=== PATIENT | female | born 1960 | race Caucasian/White ===

== ENCOUNTER 2020-10-10 16:27 | Observation (INO) | payer MEDICARE ==
--- NOTE | 2020-10-10 16:53 | ED ---
General Adult HPI - General Stated complaint: Chest Pain Time Seen by Provider: 10/10/20 16:38 Source: patient, EMS, RN notes reviewed, old records reviewed - History of Present Illness Initial comments: 60-year-old female presented for evaluation of chest pain throughout the day today. Pain was substernal with some associated dyspnea. Patient denies known history of coronary artery disease, does have a positive family history as well as history of diabetes. She was given aspirin nitroglycerin by EMS prior to arrival. Her pain is quite minimal at the time my evaluation. She denies associated nausea vomiting or diaphoresis. Pain did not radiate. Pain was not relieved with nitroglycerin. - Related Data Allergies Allergy/AdvReac Type Severity Reaction Status Date / Time morphine Allergy Rash/Hives Verified 10/10/20 16:59 acetaminophen [From Percocet] AdvReac Nausea & Verified 10/10/20 16:59 Vomiting oxycodone [From Percocet] AdvReac Nausea & Verified 10/10/20 16:59 Vomiting vancomycin AdvReac Nausea & Verified 10/10/20 16:59 Vomiting Review of Systems ROS Statement: Those systems with pertinent positive or pertinent negative responses have been documented in the HPI. ROS Other: All systems not noted in ROS Statement are negative. General Exam General appearance: alert, in no apparent distress Head exam: Present: atraumatic, normocephalic Eye exam: Present: normal appearance ENT exam: Present: normal exam Neck exam: Present: normal inspection. Absent: tenderness, meningismus Respiratory exam: Present: normal lung sounds bilaterally. Absent: respiratory distress, wheezes Cardiovascular Exam: Present: regular rate, normal rhythm GI/Abdominal exam: Present: soft. Absent: distended, tenderness Extremities exam: Present: normal inspection, normal capillary refill. Absent: pedal edema, calf tenderness Neurological exam: Present: alert, oriented X3, CN II-XII intact. Absent: motor sensory deficit Psychiatric exam: Present: normal affect, normal mood Skin exam: Present: warm, dry, intact. Absent: cyanosis, diaphoretic Course Vital Signs 10/10/20 16:40 Temperature 98.4 F Pulse Rate 98 Respiratory 18 Rate Blood Pressure 127/65 O2 Sat by Pulse 98 Oximetry EKG Findings - EKG Comments: EKG Findings:: EKG: Normal sinus rhythm, rate 75, NM interval 154, QRS duration 82, QTC 435, no ST segment elevation. Medical Decision Making - Medical Decision Making 60-year-old female presenting with chest pain. No known history of coronary artery disease. Patient has several risk factors. EKG sinus rhythm without ST segment elevation. Chest x-rays negative for acute Matt pulmonary disease. She has a normal CBC, normal CMP, negative d-dimer, negative initial troponin. Given her risk factor she will be kept in observation for serial cardiac enzymes, telemetry, cardiology consultation. Case is discussed with Dr. Velasco who will admit. - Lab Data Result diagrams: 10/10/20 17:05 10/10/20 17:05 Lab Results 10/10/20 10/10/20 10/10/20 Range/Units 17:05 17:05 17:05 WBC 6.5 (3.8-10.6) k/uL RBC 4.17 (3.80-5.40) m/uL Hgb 12.8 (11.4-16.0) gm/dL Hct 37.2 (34.0-46.0) % MCV 89.3 (80.0-100.0) fL MCH 30.6 (25.0-35.0) pg MCHC 34.3 (31.0-37.0) g/dL RDW 13.2 (11.5-15.5) % Plt Count 322 (150-450) k/uL MPV 7.0 Neutrophils % 44 % Lymphocytes % 41 % Monocytes % 9 % Eosinophils % 3 % Basophils % 0 % Neutrophils # 2.8 (1.3-7.7) k/uL Lymphocytes # 2.6 (1.0-4.8) k/uL Monocytes # 0.6 (0-1.0) k/uL Eosinophils # 0.2 (0-0.7) k/uL Basophils # 0.0 (0-0.2) k/uL PT 11.0 (9.0-12.0) sec INR 1.0 (<1.2) APTT 23.1 (22.0-30.0) sec D-Dimer 0.35 (<0.60) mg/L FEU Sodium 135 L (137-145) mmol/L Potassium 3.9 (3.5-5.1) mmol/L Chloride 100 (98-107) mmol/L Carbon Dioxide 26 (22-30) mmol/L Anion Gap 9 mmol/L BUN 34 H (7-17) mg/dL Creatinine 1.04 (0.52-1.04) mg/dL Est GFR (CKD-EPI)AfAm 69 (>60 ml/min/1.73 sqM) Est GFR (CKD-EPI)NonAf 60 (>60 ml/min/1.73 sqM) Glucose 105 H (74-99) mg/dL Calcium 10.0 (8.4-10.2) mg/dL Magnesium 1.8 (1.6-2.3) mg/dL Total Bilirubin 0.4 (0.2-1.3) mg/dL AST 53 H (14-36) U/L ALT 37 H (4-34) U/L Alkaline Phosphatase 49 (38-126) U/L Troponin I (0.000-0.034) ng/mL Total Protein 7.6 (6.3-8.2) g/dL Albumin 4.8 (3.5-5.0) g/dL Lipase 112 (23-300) U/L 10/10/20 Range/Units 17:05 WBC (3.8-10.6) k/uL RBC (3.80-5.40) m/uL Hgb (11.4-16.0) gm/dL Hct (34.0-46.0) % MCV (80.0-100.0) fL MCH (25.0-35.0) pg MCHC (31.0-37.0) g/dL RDW (11.5-15.5) % Plt Count (150-450) k/uL MPV Neutrophils % % Lymphocytes % % Monocytes % % Eosinophils % % Basophils % % Neutrophils # (1.3-7.7) k/uL Lymphocytes # (1.0-4.8) k/uL Monocytes # (0-1.0) k/uL Eosinophils # (0-0.7) k/uL Basophils # (0-0.2) k/uL PT (9.0-12.0) sec INR (<1.2) APTT (22.0-30.0) sec D-Dimer (<0.60) mg/L FEU Sodium (137-145) mmol/L Potassium (3.5-5.1) mmol/L Chloride (98-107) mmol/L Carbon Dioxide (22-30) mmol/L Anion Gap mmol/L BUN (7-17) mg/dL Creatinine (0.52-1.04) mg/dL Est GFR (CKD-EPI)AfAm (>60 ml/min/1.73 sqM) Est GFR (CKD-EPI)NonAf (>60 ml/min/1.73 sqM) Glucose (74-99) mg/dL Calcium (8.4-10.2) mg/dL Magnesium (1.6-2.3) mg/dL Total Bilirubin (0.2-1.3) mg/dL AST (14-36) U/L ALT (4-34) U/L Alkaline Phosphatase (38-126) U/L Troponin I <0.012 (0.000-0.034) ng/mL Total Protein (6.3-8.2) g/dL Albumin (3.5-5.0) g/dL Lipase (23-300) U/L Disposition Clinical Impression: Chest pain Disposition: ADMITTED IP TO THIS HOSP Condition: Stable Is patient prescribed a controlled substance at d/c from ED?: No Referrals: Bharath Lau DO [Primary Care Provider] - 1-2 days Decision to Admit Reason: Admit from EC Decision Date: 10/10/20 Decision Time: 18:23
[2020-10-10 17:19] LABS: Basophils % (A) 0 %; Eosinophils # (A) 0.2 k/uL (0-0.7); Eosinophils % (A) 3 %; HCT 37.2 % (34.0-46.0); HGB 12.8 gm/dL (11.4-16.0); Lymphocytes # (A) 2.6 k/uL (1.0-4.8); Lymphocytes % (A) 41 %; MCH 30.6 pg (25.0-35.0); MCHC 34.3 g/dL (31.0-37.0); MCV 89.3 fL (80.0-100.0); Monocytes # (A) 0.6 k/uL (0-1.0); Monocytes % (A) 9 %; Neutrophils # (A) 2.8 k/uL (1.3-7.7); Neutrophils % (A) 44 %; Platelet Count 322 k/uL (150-450); RBC 4.17 m/uL (3.80-5.40); RDW 13.2 % (11.5-15.5); WBC 6.5 k/uL (3.8-10.6)
[2020-10-10 17:32] LABS: Albumin 4.8 g/dL (3.5-5.0); Magnesium 1.8 mg/dL (1.6-2.3); Potassium 3.9 mmol/L (3.5-5.1); Total Bilirubin 0.4 mg/dL (0.2-1.3); Total Protein 7.6 g/dL (6.3-8.2)
[2020-10-10 17:34] LABS: D-Dimer 0.35 mg/L FEU (<0.60); Partial Thromboplastin Time 23.1 sec (22.0-30.0)
--- NOTE | 2020-10-10 18:09 | XR ---
EXAMINATION TYPE: XR chest 2V DATE OF EXAM: 10/10/2020 COMPARISON: NONE HISTORY: Chest pain, shortness of breath. TECHNIQUE: Frontal and lateral views of the chest are obtained. FINDINGS: There is no focal air space opacity, pleural effusion, or pneumothorax seen. The cardiac silhouette size is within normal limits. The osseous structures are intact. Slight haziness in the lower lung zones on anterior view is likely related to patient body habitus. Right-sided scoliosis is noted. IMPRESSION: No acute cardiopulmonary process.
[2020-10-10] MEDS ORDERED: NALOXONE 0.4 MG/ML 1 ML VIAL IV PRN (18:23)
[2020-10-10] MEDS ORDERED: GABAPENTIN 300 MG CAP PO PRN (19:30)
[2020-10-10] MEDS ORDERED: ALBUTEROL HFA INHALER INHALATION PRN (19:30)
[2020-10-10] MEDS ORDERED: ALPRAZolam 0.25 MG TAB PO PRN (19:31)
[2020-10-10] MEDS ORDERED: TEMAZEPAM 15 MG CAP PO PRN (19:31)
--- NOTE | 2020-10-10 20:35 | HP ---
HISTORY AND PHYSICAL DATE OF SERVICE: 10/10/2020. CHIEF COMPLAINT: Chest pain. HISTORY OF PRESENT ILLNESS: This 60-year-old woman with a past medical history of multiple medical problems including diabetes, hypertension, schizophrenia, scoliosis was admitted with chest pain. The pain was felt in the anterior part of chest which was arising from the epigastrium according to her and the patient had a very strong family history of coronary artery disease. Multiple members of family including the sister had heart attacks. Mother had heart problems. There is no history of fever, rigors or chills. No history of headache, loss of consciousness or seizures. Patient did not have any radiation of the pain or otherwise any associated sweating or palpitation also. The patient came to [facility]. Initial investigations were negative except minimal elevated AST, ALT. PAST MEDICAL HISTORY: History of hypertension, hyperlipidemia, history of diabetes, seizure disorder, chronic back pain, scoliosis, hysterectomy, DJD. MEDICATIONS: Medications prior to admission home medications are: Vitamin E, multivitamin, Zestril, phenytoin, Motrin, Ventolin, Neurontin, Lofibra, Zetia, Lipitor. ALLERGIES: MORPHINE, OXYCODONE, VANCOMYCIN. FAMILY HISTORY: No history of heart disease or strokes in the family. SOCIAL HISTORY: Previous history of smoking. Occasional THC. REVIEW OF SYSTEMS: ENT: No diminished vision. No diminished hearing. Cardiovascular is no angina. Otherwise as mentioned earlier. Respiratory as mentioned earlier. GI: As mentioned earlier. : No dysuria. NERVOUS SYSTEM: No numbness or weakness. ALLERGY/IMMUNOLOGY: No asthma or hayfever. MUSCULOSKELETAL as mentioned earlier. HEMATOLOGY/ONCOLOGY: As mentioned earlier. ENDOCRINE: As mentioned earlier. CONSTITUTIONAL: As mentioned earlier. DERMATOLOGY: Negative RHEUMATOLOGY: Negative. PSYCHIATRIC: As mentioned earlier. PHYSICAL EXAMINATION: Alert and oriented times three. Pulse is 86, blood pressure 120/60. Respirations 16, temperature normal, pulse ox 93% on room air. HEENT: Conjunctivae normal. NECK: No jugular venous distention. CARDIOVASCULAR: S1, S2 muffled. RESPIRATORY: Breath sounds diminished in the bases. No rhonchi. No crackles. ABDOMEN: Soft, obese, nontender. No mass palpable. No tenderness. LEGS: No edema. No swelling. NERVOUS SYSTEM: Higher functions as mentioned earlier. Moves all 4 limbs. No focal motor or sensory deficits. LYMPHATICS: No lymph nodes palpable in the neck, axillae or groin. SKIN: No ulcer, rash or bleeding. JOINTS: No active deforming arthropathy. LABS: CBC within normal limits, sodium 135. Labs noted. ASSESSMENT: 1. Chest pain possible unstable angina. 2. Rule out cholelithiasis. 3. Hyponatremia. 4. Increased AST, ALT. 5. Increased BUN. 6. Diabetes type 2. 7. Hypertension. 8. History of hyperlipidemia. 9. Seizure disorder. 10.Hypothyroidism. 11.History of multiple sclerosis. 12.History of chronic pain syndrome, back pain. 13.History of degenerative joint disease. 14.History of hysterectomy. 15.Remote history of nicotine dependence. 16.Obesity with body mass index of 44.8. 17.History of THC. 18.FULL CODE. RECOMMENDATIONS AND DISCUSSION: In this 54-year-old woman who presented with multiple complex medical issues, we will monitor the patient closely. Continue the current medications, management and symptomatic treatment. Rule out myocardial infarction. Cardiology consult. Symptomatic treatment. I would also recommend ultrasound of the abdomen to rule out the possibility of gallbladder pathology. Home medications were reviewed. 2D echo was also ordered. Prognosis guarded because of multiple complex medical issues. Further recommendations to follow. D-dimer is normal. MMODL / IJN: [id number] / [place]
[2020-10-10 20:43] LABS: Glucose,Whole Blood 168 mg/dL (75-99)
[2020-10-10] MEDS: HEPARIN SODIUM,PORCINE 5,000 UNIT/ML 1 ML VIAL SQ SCH (21:12)
[2020-10-10] MEDS: PANTOPRAZOLE 40 MG/10 ML VIAL IVP SCH (21:12)
[2020-10-11 03:49] VITALS: PULSE 83
[2020-10-11 06:44] LABS: Appearance,Urine Clear (Clear); Bacteria,Urine Occasional /hpf; Bilirubin,Urine Negative (Negative); Blood,Urine Moderate (Negative); Color,Urine Light Yellow; Glucose,Urine (UA) Negative (Negative); Hyaline Casts,Urine 3 /lpf (0-2); Ketones,Urine Negative (Negative); Leukocyte Esterase,Urine Trace (Negative); Nitrite,Urine Negative (Negative); PH, Urine 5.5 (5.0-8.0); Protein,Urine Negative (Negative); RBC,Urine 1 /hpf (0-5); Specific Gravity,Urine 1.013 (1.001-1.035); Squamous Epithelial Cell,Urine 1 /hpf (0-4); Urobilinogen,Urine <2.0 mg/dL (<2.0); WBC,Urine 5 /hpf (0-5)
[2020-10-11 07:31] VITALS: BP 110/79; RESP 14; TEMP 99
[2020-10-11 08:31] LABS: Basophils # (A) 0.01 X 10*3/uL (0.00-0.10); Basophils % (A) 0.2 %; Eosinophils # (A) 0.18 X 10*3/uL (0.04-0.35); HCT 35.3 % (37.2-46.3); HGB 11.8 g/dL (12.0-15.0); Lymphocytes # (A) 1.96 X 10*3/uL (0.90-5.00); Lymphocytes % (A) 43.4 %; MCH 30.8 pg (27.0-32.0); MCHC 33.4 g/dL (32.0-37.0); MCV 92.2 fL (80.0-97.0); Mean Platelet Volume 10.1 fL (9.5-12.2); Monocytes # (A) 0.61 X 10*3/uL (0.20-1.00); Monocytes % (A) 13.5 %; Neutrophils # (A) 1.75 X 10*3/uL (1.80-7.70); Neutrophils % (A) 38.7 %; Platelet Count 268 X 10*3/uL (140-440); RBC 3.83 X 10*6/uL (4.10-5.20); RDW 12.2 % (11.5-14.5); WBC 4.52 X 10*3/uL (4.50-10.00)
[2020-10-11] MEDS ORDERED: DOBUTamine DRIP for NUC MED 500 MG in DEXTROSE/WATER 1 250ML.BAG IV PRN (08:37)
[2020-10-11] MEDS ORDERED: FENOFIBRATE 160 MG TAB PO SCH (09:00)
[2020-10-11] MEDS ORDERED: lisinopriL 5 MG TAB PO SCH (09:00)
[2020-10-11] MEDS ORDERED: ASPIRIN 81 MG PO SCH (09:00)
[2020-10-11] MEDS ORDERED: MULTIVITAMINS, THERA 1 EACH TAB PO SCH (09:00)
[2020-10-11] MEDS ORDERED: EZETIMIBE 10 MG TAB PO SCH (09:00)
[2020-10-11] MEDS ORDERED: PHENYTOIN SODIUM EXTENDED 100 MG CAP PO SCH (09:00)
[2020-10-11] MEDS ORDERED: ATORVASTATIN 20 MG TAB PO SCH (09:00)
[2020-10-11] MEDS: PANTOPRAZOLE 40 MG/10 ML VIAL IVP SCH (09:01)
[2020-10-11] MEDS: HEPARIN SODIUM,PORCINE 5,000 UNIT/ML 1 ML VIAL SQ SCH (09:02)
--- NOTE | 2020-10-11 09:32 | US ---
EXAMINATION TYPE: US gallbladder DATE OF EXAM: 10/11/2020 COMPARISON: NONE CLINICAL HISTORY: cholelithiasis. Patient is not aware of any gb stones, heavy chest Pain. EXAM MEASUREMENTS: Liver Length: 19.2 cm Gallbladder Wall: 0.2cm CBD: 0.7cm Right Kidney: 10.9 x 4.8 x 4.9cm Pancreas: wnl Liver: focal fatty sparring seen, slightly enlarged Gallbladder: wnl Evidence for sonographic Montano's sign: no CBD: wnl Right Kidney: 2.3 x 1.7 x 1.3cm mid pole cyst seen IMPRESSION: No shadowing mobile gallstones or ultrasound evidence for acute cholecystitis. Probable m ild diffuse fatty infiltration of liver.
[2020-10-11 09:38] LABS: African American GFR (CKD) 94.2 (60.0-200.0); Albumin 4.5 g/dL (3.80-4.90); Albumin/Globulin Ratio 2.5 (1.60-3.17); Anion Gap 7.1 mmol/L (4.00-12.00); BUN/Creat Ratio 33.75 Ratio (12.00-20.00); Calcium 9.6 mg/dL (8.7-10.3); Carbon Dioxide 28.9 mmol/L (21.6-31.8); Globulin 1.8 g/dL (1.6-3.3); Non-African American GFR(CKD) 81.3 (60.0-200.0); Total Bilirubin 0.2 mg/dL (0.3-1.2); Total Protein 6.3 g/dL (6.2-8.2)
--- NOTE | 2020-10-11 12:18 | P.CRDCN ---
History of Present Illness History of present illness: HISTORY OF PRESENTING ILLNESS This is a pleasant 60-year-old female past medical history significant for type 2 diabetes, hyperlipidemia, hypertension, strong maternal family histor y of coronary artery disease. Patient's sister had an MS and 3 vessel CABG in her 50s. She does not follow a kitchen manager, but followers with Dr. Lau for her PCP. We have been asked to see in consultation for chest pain. Patient is seen and examined at bedside, resting comfortably in no acute distress . Patient stated she had chest pain over the weekend described as a sharp central chest pain that radiated to her collarbone which resolved in a couple minutes. She stated that she got sick from food poisoning. Yesterday morning, patient started to have constant chest pressure that worsened with activity. She was walking her dogs, chest pressure got worse, she exhibited some shortness of breath. Had to stop and sit down on her walker, she then had sharp central chest pain with radiation to her throat. Her pain resolved in about 2-3 minutes. She called her sister who told her to go to the emergency department. Patient does not have chest pain this morning. She denies palpitations, lower extremity edema, fatigue, weakness, lightheadedness of syncope. On her way to the emergency department stated she was given Nitro in the EMS, felt nauseous, did not relieve her chest pain, and stated her blood pressure was low 80s/40s. Denies history of MS or stroke in the past. Patients states shes complaint with medication. She does not exercise frequently. She is a former smoker. She denies alcohol or illicit drug use. Laboratory data reviewed, troponins negative 3, D- dimer 0.35, COVID-19 negative, WBC 4.5, Hgb 11.8, Plt 268. Vital signs BP 110/79 HR 83, 98% on room air, temp 99F. Current home cardiac medications include lisinopril 5 mg daily, atorvastatin 20 mg daily. DIAGNOSTICS EKG reveals sinus rhythm heart rate 75, no significant ST-T wave abnormalities. Prior EKG - no prior EKGs Telemetry tracings indicate sinus rhythm with occassional PVCs. Chest xray acute cardiopulmonary process. REVIEW OF SYSTEMS At the time of my exam: CONSTITUTIONAL: Denies fever or chills. CARDIOVASCULAR: +chest pain + shortness of breath, Denies orthopnea, PND or palpitations. RESPIRATORY: Denies cough. GASTROINTESTINAL: Denies abdominal pain, diarrhea, constipation, nausea or vom iting. MUSCULOSKELETAL: Denies myalgias. NEUROLOGIC: Denies numbness, tingling, headacbe or weakness. ENDOCRINE: Denies fatigue, weight change, polydipsia or polyurina. GENITOURINARY: Denies burning, hematuria or urgency with micturation. HEMATOLOGIC: Denies history of anemia or bleeding. PHYSICAL EXAMINATION CONSTITUTIONAL: No apparent distress. HEENT: Head is normocephalic. Pupils are equal, round. Sclerae anicteric. Mucous membranes of the mouth are moist. No JVD. No carotid bruit. CHEST EXAMINATION: Lungs are clear to auscultation. No chest wall tenderness is noted on palpation or with deep breathing. HEART EXAMINATION: Regular rate and rhythm. S1, S2 heard. No murmurs, gallops or rub. ABDOMEN: Soft, nontender. Positive bowel sounds. EXTREMITIES: 2+ peripheral pulses, no lower extremity edema and no calf tenderness. SKIN: intact NEUROLOGIC EXAMINATION: Patient is awake, alert and oriented x3. ASSESSMENT -Hypertension -Type 2 Diabetes -Hyperlipidema -Chest pain, atypical PLAN -2D Echo ordered -Will obtain Dobutamine stress echo -Per cardiology standpoint, if testing with no acute changes- ok to be discharged and follow up outpatient in cardiology clinic -Continue lisinopril 5mg daily, atorvastatin 20mg daily. Nurse Practitioner note has been reviewed, I agree with a documented findings and plan of care. Patient was seen and examined. Past Medical History Past Medical History: Diabetes Mellitus, Hyperlipidemia, Hypertension, Seizure Disorder, Thyroid Disorder Additional Past Medical History / Comment(s): ms, chronic back pain - scolosis, DDD, sees pain doctor History of Any Multi-Drug Resistant Organisms: None Reported Past Surgical History: Hysterectomy, Joint Replacement, Orthopedic Surgery Additional Past Surgical History / Comment(s): shoulder, hip replacement Past Anesthesia/Blood Transfusion Reactions: No Reported Reaction Past Psychological History: No Psychological Hx Reported Smoking Status: Former smoker Past Alcohol Use History: Rare Past Drug Use History: Marijuana Medications and Allergies Home Medications Medication Instructions Recorded Confirmed Type Albuterol Inhaler [Ventolin Hfa 2 puff INHALATION RT-Q4H PRN 10/10/20 10/10/20 History Inhaler] Atorvastatin [Lipitor] 20 mg PO DAILY 10/10/20 10/10/20 History Ezetimibe [Zetia] 10 mg PO DAILY 10/10/20 10/10/20 History Fenofibrate [Lofibra] 160 mg PO DAILY 10/10/20 10/10/20 History Gabapentin [Neurontin] 600 mg PO TID PRN 10/10/20 10/10/20 History Ibuprofen [Motrin] 800 mg PO TID PRN 10/10/20 10/10/20 History Multivitamins, Thera [Multivitamin 1 tab PO DAILY 10/10/20 10/10/20 History (formulary)] Phenytoin Sodium Extended 200 mg PO DAILY 10/10/20 10/10/20 History [Dilantin] Vitamin E 400 unit PO DAILY 10/10/20 10/10/20 History lisinopriL [Zestril] 5 mg PO DAILY 10/10/20 10/10/20 History Allergies Allergy/AdvReac Type Severity Reaction Status Date / Time morphine Allergy Rash/Hives Verified 10/10/20 18:33 oxycodone [From Percocet] AdvReac Nausea & Verified 10/10/20 18:33 Vomiting vancomycin AdvReac Nausea & Verified 10/10/20 18:33 Vomiting Physical Exam Vitals: Vital Signs Temp Pulse Pulse Resp BP BP BP 10/11/20 09:29 10/11/20 07:00 99.0 F 83 14 110/79 10/11/20 02:00 97.5 F L 83 18 139/79 10/10/20 20:00 97.9 F 88 17 131/63 10/10/20 19:15 86 16 120/63 10/10/20 19:01 87 16 120/63 10/10/20 18:30 77 16 114/56 10/10/20 18:00 78 16 131/88 10/10/20 17:30 77 16 89/74 10/10/20 17:00 90 18 126/99 10/10/20 16:40 98.4 F 98 18 127/65 Pulse Ox 10/11/20 09:29 98 10/11/20 07:00 98 10/11/20 02:00 95 10/10/20 20:00 97 10/10/20 19:15 93 L 10/10/20 19:01 98 10/10/20 18:30 98 10/10/20 18:00 98 10/10/20 17:30 98 10/10/20 17:00 99 10/10/20 16:40 98 Intake and Output 10/10/20 10/11/20 10/11/20 22:59 06:59 14:59 Intake Total 600 Output Total 600 Balance 600 -600 Intake: Oral 600 Output: Urine 600 Other: Voiding Method Toilet Toilet Toilet # Voids 2 Weight 111.13 kg Results 10/11/20 04:50 10/11/20 04:50 Cardiac Enzymes 10/10/20 10/10/20 10/10/20 Range/Units 17:05 17:05 22:38 AST 53 H (14-36) U/L Troponin I <0.012 <0.012 (0.000-0.034) ng/mL 10/11/20 10/11/20 Range/Units 04:50 04:50 AST 48 H (14-36) U/L Troponin I <0.012 (0.000-0.034) ng/mL Coagulation 10/10/20 Range/Units 17:05 PT 11.0 (9.0-12.0) sec APTT 23.1 (22.0-30.0) sec CBC 10/10/20 10/11/20 Range/Units 17:05 04:50 WBC 6.5 4.52 (3.8-10.6) k/uL RBC 4.17 3.83 L (3.80-5.40) m/uL Hgb 12.8 11.8 L (11.4-16.0) gm/dL Hct 37.2 35.3 L (34.0-46.0) % Plt Count 322 268 (150-450) k/uL Comprehensive Metabolic Panel 10/10/20 10/11/20 Range/Units 17:05 04:50 Sodium 135 L 141 (137-145) mmol/L Potassium 3.9 4.0 (3.5-5.1) mmol/L Chloride 100 105 (98-107) mmol/L Carbon Dioxide 26 28.9 (22-30) mmol/L BUN 34 H 27.0 (7-17) mg/dL Creatinine 1.04 0.8 (0.52-1.04) mg/dL Glucose 105 H 117 H (74-99) mg/dL Calcium 10.0 9.6 (8.4-10.2) mg/dL AST 53 H 48 H (14-36) U/L ALT 37 H 38 (4-34) U/L Alkaline Phosphatase 49 49 (38-126) U/L Total Protein 7.6 6.3 (6.3-8.2) g/dL Albumin 4.8 4.50 (3.5-5.0) g/dL Current Medications Generic Name Dose Route Start Last Admin Trade Name Freq PRN Reason Stop Dose Admin Albuterol Sulfate 2 puff 10/10/20 19:30 Albuterol Hfa Inhaler INHALATION RT-Q4H PRN Shortness Of Breath Alprazolam 0.25 mg 10/10/20 19:31 Alprazolam 0.25 Mg Tab PO TID PRN Anxiety Aspirin 81 mg 10/11/20 09:00 10/11/20 09:06 Aspirin 81 Mg PO 81 mg DAILY JOSESITO Administration Atorvastatin Calcium 20 mg 10/11/20 09:00 10/11/20 09:01 Atorvastatin 20 Mg Tab PO 20 mg DAILY JOSESITO Administration Ezetimibe 10 mg 10/11/20 09:00 10/11/20 09:01 Ezetimibe 10 Mg Tab PO 10 mg DAILY JOSESITO Administration Fenofibrate 160 mg 10/11/20 09:00 10/11/20 09:00 Fenofibrate 160 Mg Tab PO 160 mg DAILY JOSESITO Administration Gabapentin 600 mg 10/10/20 19:30 10/11/20 09:05 Gabapentin 300 Mg Cap PO 600 mg TID PRN Administration Pain Heparin Sodium (Porcine) 5,000 unit 10/10/20 21:00 10/11/20 09:02 Heparin Sodium,Porcine 5,000 Unit/Ml 1 Ml Vial SQ 5,000 unit Q12HR JOSESITO Administration Dobutamine HCl/Dextrose 500 mg 250 mls @ 33.339 mls/hr 10/11/20 08:37 / IV Solution IV 10/11/20 12:37 .Q7H30M PRN Per Protocol Protocol 10 MCG/KG/MIN Lisinopril 5 mg 10/11/20 09:00 10/11/20 09:01 Lisinopril 5 Mg Tab PO 5 mg DAILY JOSESITO Administration Multivitamins 1 each 10/11/20 09:00 10/11/20 09:00 Multivitamins, Thera 1 Each Tab PO 1 each DAILY JOSESITO Administration Naloxone HCl 0.2 mg 10/10/20 18:23 Naloxone 0.4 Mg/Ml 1 Ml Vial IV Q2M PRN Opioid Reversal Pantoprazole Sodium 40 mg 10/10/20 21:00 10/11/20 09:01 Pantoprazole 40 Mg/10 Ml Vial IVP 40 mg BID JOSESITO Administration Phenytoin Sodium 200 mg 10/11/20 09:00 10/11/20 09:01 Phenytoin Sodium Extended 100 Mg Cap PO 200 mg DAILY JOSESITO Administration Temazepam 15 mg 10/10/20 19:31 Temazepam 15 Mg Cap PO HS PRN Insomnia Intake and Output 10/10/20 10/11/20 10/11/20 22:59 06:59 14:59 Intake Total 600 Output Total 600 Balance 600 -600 Intake: Oral 600 Output: Urine 600 Other: Voiding Method Toilet Toilet Toilet # Voids 2 Weight 111.13 kg 10/11/20 04:50 10/11/20 04:50
--- NOTE | 2020-10-11 12:27 | ECHOF ---
Referral Reason:CP MEASUREMENTS -------- HEIGHT: 160.0 cm WEIGHT: 111.1 kg BP: 139/79 RVIDd: 3.2 cm (< 3.3) IVSd: 1.3 cm (0.6 - 1.1) LVIDd: 4.2 cm (3.9 - 5.3) LVPWd: 1.3 cm (0.6 - 1.1) IVSs: 1.9 cm LVIDs: 2.2 cm LVPWs: 1.5 cm LAESV Index (A-L): 24.25 ml/m Ao Diam: 3.4 cm (2.0 - 3.7) AV Cusp: 1.9 cm (1.5 - 2.6) MV EXCURSION: 9.024 mm (> 18.000) MV EF SLOPE: 64 mm/s (70 - 150) EPSS: 0.7 cm MV E Jez: 0.87 m/s MV DecT: 197 ms MV A Jez: 0.56 m/s MV E/A Ratio: 1.54 AV maxP.41 mmHg AV meanP.03 mmHg RAP: 5.00 mmHg RVSP: 19.39 mmHg FINDINGS -------- Sinus rhythm. This was a technically adequate study. The left ventricular size is normal. There is mild concentric left ventricular hypertrophy. Overa ll left ventricular systolic function is normal with, an EF between 55 - 60 %. The diastolic fillin g pattern is normal for the age of the patient 9.52. The right ventricle is normal in size. Normal LA size by volume 22+/-6 ml/m2. The right atrial size is normal. Interatrial and interventricular septum intact. There is mild aortic valve sclerosis. There is no evidence of aortic regurgitation. There is mild aortic stenosis present. Peak/mean gradient across the Aortic Valve is 18.41mmHg / 10.03mmHg. Mild mitral annular calcification present. Mild mitral regurgitation is present. The tricuspid valve appears structurally normal. Mild tricuspid regurgitation present. Right vent ricular systolic pressure is normal at < 35 mmHg. The right ventricular systolic pressure, as measu red by Doppler, is 19.39mmHg. There is no pulmonic regurgitation present. The aortic root size is normal. IVC Not well visulized. There is no pericardial effusion. CONCLUSIONS -------- 1. There is mild concentric left ventricular hypertrophy. 2. Overall left ventricular systolic function is normal with, an EF between 55 - 60 %. 3. Normal LA size by volume 22+/-6 ml/m2. 4. There is mild aortic stenosis present. 5. Peak/mean gradient across the Aortic Valve is 18.41mmHg / 10.03mmHg. 6. Mild mitral regurgitation is present. 7. Mild tricuspid regurgitation present. DISTRICT SUPERVISOR: Mami Arias RDCS
--- NOTE | 2020-10-11 23:51 | DS ---
DISCHARGE SUMMARY DATE OF SERVICE: 10/08/2020 FINAL DIAGNOSES: 1. Chest pain with negative stress test, possible gastroesophageal reflux disease. 2. Fatty infiltration on the ultrasound. 3. Hyponatremia. 4. Increased AST/ALT. 5. Increased BUN. 6. Diabetes mellitus type 2. 7. Hypertension. 8. Hyperlipidemia. 9. History of seizure disorder. 10.Hypothyroidism. 11.History of multiple sclerosis. 12.History of chronic pain syndrome. Back pain. 13.History of degenerative joint disease. 14.Hysterectomy. 15.Remote history of nicotine dependence. 16.Obesity with body mass index of 44.8. 17.History of THC. 18.FULL CODE. RECOMMENDATIONS AND DISCUSSION: Recommend to continue current management and symptomatic treatment. Otherwise at this time, the LFTs have significantly improved. Recommend close outpatient followup in the outpatient setting. Otherwise, the patient had a stress test which was negative. Treated with proton pump inhibitors. On exam, vitals stable. Cardiovascular S1, S2. Abdomen soft. Nervous system: No focal deficits. DISCHARGE ADVICE AND MEDICATIONS: 1. Diet is cardiac diet. 2. Activity limited until followup. 3. Follow up with Dr. Gresham as advised. 4. Follow up with Dr. Hollins in 1-2 days. DISCHARGE MEDICATIONS: 1. Dilantin 200 mg daily. 2. Lipitor 20 mg daily. 3. Lofibra 160 mg p.o. daily. 4. Motrin p.r.n. 5. Multivitamins. 6. Neurontin 600 mg p.o. t.i.d. 7. Ventolin p.r.n. 8. Vitamin E 400 mg daily. 9. Zestril 5 mg. 10.Zetia 10 mg daily. 11.Aspirin. 12.Protonix 40 mg p.o. daily. MMODL / IJN: [id number] /
--- NOTE | 2020-10-12 14:15 | ECHOS ---
STRESS ECHOCARDIOGRAM LUMASON: N/A Vial INDICATIONS: Chest pain MEDICATIONS: BASELINE HEART RATE: 75 BASELINE BLOOD PRESSURE: 116/50 MAXIMUM HEART RATE: 152 MAXIMUM BLOOD PRESSURE: 142/52 85% MPHR: 138 100% MPHR: 162 METS: N/A MAXIMUM STAGE REACHED: TOTAL EXERCISE TIME: 11:03 CLINICAL INFORMATION: Baseline rhythm is sinus mechanism, rate of 75, normal axis and intervals, normal electrocardiogram. Baseline blood pressure 116/50 mmHg. Patient received infusion of dobutamine per protocol, peak rate 152 beats per minute which is equal to 94% maximum predicted heart rate. Peak blood pressure 142/52 mmHg. Electrocardiograph monitoring revealed no evidence of diagnostic ischemic ST deviation. Baseline echocardiogram revealed normal wall motion. At peak infusion, there was normal wall motion augmentation with no hypokinesis or dyskinesis. CONCLUSION: 1. Normal electrocardiograph response to dobutamine infusion. 2. Normal stress echocardiogram with no evidence of stress-induced ischemia. MMODL / IJN: [id number] /
== END 2020-10-11 15:37 | disposition home or self-care (01) ==
LOC: EC 16:27 → 6NMEDSUR 18:23
PROVIDERS: ADMIT Hospitalist; ATTEND Hospitalist
DX: R07.89 Other chest pain (principal); R06.00 Dyspnea, unspecified; R06.02 Shortness of breath; R07.2 Precordial pain; R11.0 Nausea; I10 Essential (primary) hypertension; F20.9 Schizophrenia, unspecified; M41.9 Scoliosis, unspecified; E11.9 Type 2 diabetes mellitus without complications; E78.5 Hyperlipidemia, unspecified; G40.909 Epilepsy, unspecified, not intractable, without status epilepticus; E87.1 Hypo-osmolality and hyponatremia; E03.9 Hypothyroidism, unspecified; G35 Multiple sclerosis; R74.01 Elevation of levels of liver transaminase levels; E07.9 Disorder of thyroid, unspecified; Z90.710 Acquired absence of both cervix and uterus; M54.9 Dorsalgia, unspecified; G89.4 Chronic pain syndrome; M19.90 Unspecified osteoarthritis, unspecified site; Z79.899 Other long term (current) drug therapy; Z79.1 Long term (current) use of non-steroidal anti-inflammatories (NSAID); Z87.891 Personal history of nicotine dependence; E66.9 Obesity, unspecified; Z68.41 Body mass index [BMI] 40.0-44.9, adult; R79.89 Other specified abnormal findings of blood chemistry; Z20.822 Contact with and (suspected) exposure to COVID-19; Z88.5 Allergy status to narcotic agent; Z88.1 Allergy status to other antibiotic agents; Z96.649 Presence of unspecified artificial hip joint; Z82.49 Family history of ischemic heart disease and other diseases of the circulatory system; Z83.3 Family history of diabetes mellitus
CPT/HCPCS: 96376; 96372 ×2; 96374; 99285; 36415; 94760; 93005; 93306; 85379; 80053 ×2; 83690; 83735; 84484 ×2; 85025 ×2; 85610; 85730; 81001; 87635; 71046; 76705; G0378 ×2; C8930; J1644 ×2; C9113 ×2; Q9950; 93351

== ENCOUNTER 2022-10-22 10:48 | Emergency (ER) | payer MEDICARE, OTHER ==
[2022-10-22 10:54] VITALS: RESP 18
[2022-10-22 11:31] VITALS: BP 135/105; TEMP 97.1
[2022-10-22 11:32] VITALS: PULSE 88
--- NOTE | 2022-10-22 11:34 | ED ---
General Adult HPI - General Chief complaint: Neuro Symptoms/Deficit Stated complaint: Paralzed left side of face Time Seen by Provider: 10/22/22 11:13 Source: patient, RN notes reviewed Mode of arrival: ambulatory Limitations: no limitations - History of Present Illness Initial comments: Patient is a pleasant 62-year-old female presenting to the emergency Department with facial weakness. Onset of symptoms was yesterday morning when she woke around 7 AM. Symptoms have somewhat worsened since that time. Patient does have difficulty opening and closing her left eye. No other area of involvement. No history of similar symptoms previously. - Related Data Home Medications Medication Instructions Recorded Confirmed Albuterol Inhaler [Ventolin Hfa 2 puff INHALATION RT-Q4H PRN 10/10/20 10/10/20 Inhaler] Atorvastatin [Lipitor] 20 mg PO DAILY 10/10/20 10/10/20 Ezetimibe [Zetia] 10 mg PO DAILY 10/10/20 10/10/20 Fenofibrate [Lofibra] 160 mg PO DAILY 10/10/20 10/10/20 Gabapentin [Neurontin] 600 mg PO TID PRN 10/10/20 10/10/20 Ibuprofen [Motrin] 800 mg PO TID PRN 10/10/20 10/10/20 Multivitamins, Thera [Multivitamin 1 tab PO DAILY 10/10/20 10/10/20 (formulary)] Phenytoin Sodium Extended 200 mg PO DAILY 10/10/20 10/10/20 [Dilantin] Vitamin E 400 unit PO DAILY 10/10/20 10/10/20 lisinopriL [Zestril] 5 mg PO DAILY 10/10/20 10/10/20 Previous Rx's Medication Instructions Recorded Pantoprazole Sodium [Protonix] 40 mg PO DAILY #30 tablet. 10/11/20 predniSONE [Deltasone] 3 tab PO DAILY #21 tab 10/22/22 valACYclovir HCL [Valtrex] 1 tab PO TID #21 tablet 10/22/22 Allergies Allergy/AdvReac Type Severity Reaction Status Date / Time morphine Allergy Rash/Hives Verified 10/22/22 10:54 oxycodone [From Percocet] AdvReac Nausea & Verified 10/22/22 10:54 Vomiting vancomycin AdvReac Nausea & Verified 10/22/22 10:54 Vomiting Review of Systems ROS Statement: Those systems with pertinent positive or pertinent negative responses have been documented in the HPI. ROS Other: All systems not noted in ROS Statement are negative. Constitutional: Denies: fever Eyes: Denies: eye pain ENT: Denies: ear pain Respiratory: Denies: cough Cardiovascular: Denies: chest pain Endocrine: Denies: fatigue Gastrointestinal: Denies: abdominal pain Genitourinary: Denies: dysuria Musculoskeletal: Denies: back pain Neurological: Reports: as per HPI Past Medical History Past Medical History: Diabetes Mellitus, Hyperlipidemia, Hypertension, Seizure Disorder, Thyroid Disorder Additional Past Medical History / Comment(s): ms, chronic back pain - scolosis, DDD, sees pain doctor History of Any Multi-Drug Resistant Organisms: None Reported Past Surgical History: Hysterectomy, Joint Replacement, Orthopedic Surgery Additional Past Surgical History / Comment(s): shoulder, hip replacement Past Anesthesia/Blood Transfusion Reactions: No Reported Reaction Past Psychological History: No Psychological Hx Reported Smoking Status: Former smoker Past Alcohol Use History: Rare Past Drug Use History: Marijuana General Exam Limitations: no limitations General appearance: alert, in no apparent distress Head exam: Present: normocephalic Eye exam: Present: normal appearance, PERRL, EOMI Neck exam: Present: normal inspection Respiratory exam: Present: normal lung sounds bilaterally Cardiovascular Exam: Present: regular rate, normal rhythm GI/Abdominal exam: Present: soft. Absent: tenderness Extremities exam: Present: normal inspection Neurological exam: Present: alert, oriented X3, CN II-XII intact (Except for left-sided facial weakness that does involve the forehead and difficulty closing the eye) Expanded Neurological exam: Present: protecting the airway Speech: Present: fluid speech Cranial nerves: EOM's Intact: Normal, Facial Palsy without Forehead Movement: Normal (Patient has difficulty moving the forehead) Sensory exam: Upper Extremity Light Touch: Normal, Lower Extremity Light Touch: Normal Motor strength exam: RUE: 5, LUE: 5, RLE: 5, LLE: 5 Eye Response: (4) open spontaneously Motor Response: (6) obeys commands Verbal Response: (5) oriented Psychiatric exam: Present: normal affect, normal mood Skin exam: Present: normal color Course Vital Signs 10/22/22 10/22/22 10:51 11:30 Temperature 98.7 F 97.1 F L Pulse Rate 85 88 Respiratory 18 Rate Blood Pressure 158/94 135/105 O2 Sat by Pulse 97 96 Oximetry EKG Findings - EKG Results: EKG: interpreted by ALESSIOD, sinus rhythm, normal axis, normal QRS, normal ST/T Medical Decision Making - Medical Decision Making Was pt. sent in by a medical professional or institution (AARON Shay, PRINTING PLATE CLERK, urgent care, hospital, or half-way...) When possible be specific @ -No Did you speak to anyone other than the patient for history (EMS, parent, family, police, friend...)? What history was obtained from this source @ -No Did you review nursing and triage notes (agree or disagree)? Why? @ -I reviewed and agree with nursing and triage notes Were old charts reviewed (outside hosp., previous admission, EMS record, old EKG, old radiological studies, urgent care reports/EKG's, half-way records)? Report findings @ -No old charts were reviewed Differential Diagnosis (chest pain, altered mental status, abdominal pain women, abdominal pain men, vaginal bleeding, weakness, fever, dyspnea, syncope, headache, dizziness, GI bleed, back pain, seizure, CVA, palpatations, mental health)? @ -[Differential Weakness: Hypoglycemia, shock, sepsis, hyponatremia, anemia, infection, AR, ETOH, adverse medicine reaction, overdose, stroke, this is not meant to be an all-inclusive l ist. EKG interpreted by me (3pts min.). @ -As above X-rays interpreted by me (1pt min.). @ -None done CT interpreted by me (1pt min.). @ -Report reviewed U/S interpreted by me (1pt. min.). @ -None done What testing was considered but not performed or refused? (CT, X-rays, U/S, labs)? Why? @ -None What meds were considered but not given or refused? Why? @ -None Did you discuss the management of the patient with other professionals (professionals i.e. AARON Shay, PRINTING PLATE CLERK, lab, RT, psych nurse, social studies teacher, inbound call center representative, teacher, returning officer, porter sample case)? Give summary @ -No Was smoking cessation discussed for >3mins.? @ -No Was critical care preformed (if so, how long)? @ -No Were there social determinants of health that impacted care today? How? (Homelessness, low income, unemployed, alcoholism, drug addiction, transportation, low edu. Level, literacy, decrease access to med. care, group home, rehab)? @ -No Was there de-escalation of care discussed even if they declined (Discuss DNR or withdrawal of care, Hospice)? DNR status @ -No What co-morbidities impacted this encounter? (DM, HTN, Smoking, COPD, CAD, Cancer, CVA, ARF, Chemo, Hep., AIDS, mental health diagnosis, sleep apnea, morbid obesity)? @ -None Was patient admitted / discharged? Hospital course, mention meds given and route, prescriptions, significant lab abnormalities, going to OR and other pertinent info. @ -Patient reevaluated and updated Undiagnosed new problem with uncertain prognosis? @ -No Drug Therapy requiring intensive monitoring for toxicity (Heparin, Nitro, Insulin, Cardizem)? @ -No Were any procedures done? @ -No Diagnosis/symptom? @ -Bolanos's palsy Acute, or Chronic, or Acute on Chronic? @ -Acute Uncomplicated (without systemic symptoms) or Complicated (systemic symptoms)? @ -default Side effects of treatment? @ -No Exacerbation, Progression, or Severe Exacerbation? @ -No Poses a threat to life or bodily function? How? (Chest pain, USA, AR, pneumonia, PE, COPD, DKA, ARF, appy, cholecystitis, CVA, Diverticulitis, Homicidal, Suicidal, threat to staff... and all critical care pts) @ -No Disposition Clinical Impression: Bolanos's palsy Disposition: HOME SELF-CARE Condition: Stable Instructions (If sedation given, give patient instructions): Bolanos Palsy (ED) Additional Instructions: Prescriptions have been sent to pharmacy. Please do follow-up with primary care physician in the next couple days for recheck. Lacri-Lube [id number] 4 times daily to the left eye. Tape eye shut at nighttime. Prescriptions: predniSONE [Deltasone] 3 tab PO DAILY #21 tab valACYclovir HCL [Valtrex] 1 tab PO TID #21 tablet Is patient prescribed a controlled substance at d/c from ED?: No Referrals: Bharath Lau DO [Primary Care Provider] - 1-2 days Time of Disposition: 12:42
--- NOTE | 2022-10-22 12:30 | CT ---
EXAMINATION TYPE: CT brain wo con DATE OF EXAM: 10/22/2022 COMPARISON: None HISTORY: ams CT DLP: 1084.4 mGycm Automated exposure control for dose reduction was used. FINDINGS: Mild generalized degenerative change. There is bilateral areas of hypoattenuation within the white ma tter which are nonspecific. No midline shift or mass effect. Artifact along the skull base and limits assessment but grossly there is no sizable acute intraparenchymal hemorrhage. No midline shift or ma ss effect. Calvarium is intact. Changes of chronic sinusitis. Orbits are symmetric. Craniocervical junction main tained. IMPRESSION: NO ACUTE HEMORRHAGE OR MASS EFFECT. THERE ARE NONSPECIFIC WHITE MATTER CHANGES. MOST LIKELY ON THE BA SIS OF REMOTE WHITE MATTER ISCHEMIA, HOWEVER, IF THERE IS CLINICAL CONCERN FOR ACUTE ISCHEMIA CORRELA TE WITH MRI CLINICALLY WARRANTED.
== END 2022-10-22 12:54 | disposition home or self-care (01) ==
LOC: EC 10:48
DX: G51.0 Bell's palsy (principal); E11.9 Type 2 diabetes mellitus without complications; I10 Essential (primary) hypertension; E78.5 Hyperlipidemia, unspecified; G40.909 Epilepsy, unspecified, not intractable, without status epilepticus; F12.90 Cannabis use, unspecified, uncomplicated; Z87.891 Personal history of nicotine dependence; Z79.899 Other long term (current) drug therapy; Z88.1 Allergy status to other antibiotic agents; Z88.5 Allergy status to narcotic agent
CPT/HCPCS: 70450; 93005; 99284

== ENCOUNTER 2022-12-23 15:58 | Emergency (ER) | payer MEDICARE, OTHER ==
[2022-12-23 16:20] VITALS: BP 133/79; PULSE 77; RESP 20; TEMP 98.2
--- NOTE | 2022-12-23 17:18 | ED ---
Recheck HPI - General Chief Complaint: Back Pain/Injury Stated Complaint: joyce leg/hip pain Time Seen by Provider: 12/23/22 17:11 Source: patient, RN notes reviewed, old records reviewed Mode of arrival: wheelchair Limitations: no limitations - History of Present Illness Initial Comments: This is a 62-year-old female to the emergency department for evaluation patient presents today for evaluation of back pain severe back pain acute on chronic back pain. No history of back surgery. No new trauma no loss of bowel or bladder no neurological complaints. Patient resents CARMEN pain control had vertebral injection for pain is worse activities been worse. Pain is worse. MD Complaint: other (Severe back pain) -: days(s) Returns Today for: persistent/worsening pain related to initial visit Symptoms Since Prior Visit: worsening pain Associated Symptoms: nausea Treatments Prior to Arrival: Given Pain Meds on - Related Data Home Medications Medication Instructions Recorded Confirmed Albuterol Inhaler [Ventolin Hfa 2 puff INHALATION RT-Q4H PRN 10/10/20 10/10/20 Inhaler] Atorvastatin [Lipitor] 20 mg PO DAILY 10/10/20 10/10/20 Ezetimibe [Zetia] 10 mg PO DAILY 10/10/20 10/10/20 Fenofibrate [Lofibra] 160 mg PO DAILY 10/10/20 10/10/20 Gabapentin [Neurontin] 600 mg PO TID PRN 10/10/20 10/10/20 Ibuprofen [Motrin] 800 mg PO TID PRN 10/10/20 10/10/20 Multivitamins, Thera [Multivitamin 1 tab PO DAILY 10/10/20 10/10/20 (formulary)] Phenytoin Sodium Extended 200 mg PO DAILY 10/10/20 10/10/20 [Dilantin] Vitamin E 400 unit PO DAILY 10/10/20 10/10/20 lisinopriL [Zestril] 5 mg PO DAILY 10/10/20 10/10/20 Previous Rx's Medication Instructions Recorded Pantoprazole Sodium [Protonix] 40 mg PO DAILY #30 tablet. 10/11/20 predniSONE [Deltasone] 3 tab PO DAILY #21 tab 10/22/22 valACYclovir HCL [Valtrex] 1 tab PO TID #21 tablet 10/22/22 Allergies Allergy/AdvReac Type Severity Reaction Status Date / Time morphine Allergy Rash/Hives Verified 12/23/22 16:20 oxycodone [From Percocet] AdvReac Nausea & Verified 12/23/22 16:20 Vomiting vancomycin AdvReac Nausea & Verified 12/23/22 16:20 Vomiting Review of Systems ROS Statement: Those systems with pertinent positive or pertinent negative responses have been documented in the HPI. ROS Other: All systems not noted in ROS Statement are negative. Past Medical History Past Medical History: Diabetes Mellitus, Hyperlipidemia, Hypertension, Seizure Disorder, Thyroid Disorder Additional Past Medical History / Comment(s): ms, chronic back pain - scolosis, DDD, sees pain doctor History of Any Multi-Drug Resistant Organisms: None Reported Past Surgical History: Hysterectomy, Joint Replacement, Orthopedic Surgery Additional Past Surgical History / Comment(s): shoulder, hip replacement Past Anesthesia/Blood Transfusion Reactions: No Reported Reaction Past Psychological History: No Psychological Hx Reported Smoking Status: Former smoker Past Alcohol Use History: Rare Past Drug Use History: Marijuana General Exam Limitations: no limitations General appearance: alert, in no apparent distress Head exam: Present: atraumatic, normocephalic, normal inspection Eye exam: Present: normal appearance, PERRL, EOMI. Absent: scleral icterus, conjunctival injection, periorbital swelling ENT exam: Present: normal exam, mucous membranes moist Neck exam: Present: normal inspection. Absent: tenderness, meningismus, lymphadenopathy Respiratory exam: Present: normal lung sounds bilaterally. Absent: respiratory distress, wheezes, rales, rhonchi, stridor Cardiovascular Exam: Present: regular rate, normal rhythm, normal heart sounds. Absent: systolic murmur, diastolic murmur, rubs, gallop, clicks GI/Abdominal exam: Present: soft, normal bowel sounds. Absent: distended, tenderness, guarding, rebound, rigid Extremities exam: Present: normal inspection, full ROM, normal capillary refill. Absent: tenderness, pedal edema, joint swelling, calf tenderness Back exam: Present: tenderness, CVA tenderness (R), muscle spasm, paraspinal tenderness, vertebral tenderness Neurological exam: Present: alert, oriented X3, CN II-XII intact Psychiatric exam: Present: normal affect, normal mood Skin exam: Present: warm, dry, intact, normal color. Absent: rash Course Vital Signs 12/23/22 16:16 Temperature 98.2 F Pulse Rate 77 Respiratory 20 Rate Blood Pressure 133/79 O2 Sat by Pulse 97 Oximetry - Reevaluation(s) Reevaluation #1: 12/24/22 00:21 Medical records reviewed Reevaluation #2: 12/24/22 00:21 Patient's pain is controlled improve no neurological findings Reevaluation #3: 12/24/22 00:21 Patient informed results questions answered Reevaluation #4: 12/24/22 00:21 Was pt. sent in by a medical professional or institution? @ -no Did you speak to anyone other than the patient for history? @ -no Did you review nursing and triage notes? @ -agree Were old charts reviewed? @ -no Differential Diagnosis? @ -prior EKG interpreted by me (3pts min.)? @ -no X-rays interpreted by me (1pt min.)? @ -no CT interpreted by me (1pt min.)? @ -no U/S interpreted by me (1pt. min.)? @ -no What testing was considered but not performed? (CT, X-rays, U/S, labs)? Why? @ -no What meds were considered but not given? Why? @ -no Did you discuss the management of the patient with other professionals? @ -no Did you reconcile home meds? @ -no Was smoking cessation discussed for >3mins.? @ -no Was critical care preformed (if so, how long)? @ -no Were there social determinants of health that impacted care today? How? (Homelessness, low income, unemployed, alcoholism, drug addiction, transportation, low edu. Level, literacy, decrease access to med. care, [facility], rehab)? @ -no Was there de-escalation of care discussed even if they declined? (Discuss DNR or withdrawal of care, Hospice)? @ -no What co-morbidities impacted this encounter? (DM, HTN, Smoking, COPD, CAD, Cancer, CVA, Hep., AIDS, mental health diagnosis, sleep apnea, morbid obesity)? @ -none Was patient admitted / discharged? @ -62 female DF for evaluation of acute on chronic back pain here for pain control, no change in computed tomography scan from prior no current, patient can be discharged home has no focal neurological deficits or complaint Discharged Undiagnosed new problem with uncertain prognosis? @ -no Drug Therapy requiring intensive monitoring for toxicity (Heparin, Nitro, Insulin, Cardizem)? @ -no Were any procedures done? @ -no Diagnosis/symptom? @ -Chronic back pain Acute, or Chronic, or Acute on Chronic? @ -Chronic Uncomplicated (without systemic symptoms) or Complicated (systemic symptoms)? @ -uncomplicated Side effects of treatment? @ -no Exacerbation, Progression, or Severe Exacerbation] @ -no Poses a threat to life or bodily function? @ -no:10 Medical Decision Making - Medical Decision Making 62 female to the emergency department with acute back pain, history of pain control and started injection, currently with lumbar radiculopathy pain is well- controlled currently patient can be discharged home - Radiology Data Radiology results: report reviewed (CT lumbar spine is negative for traumatic injury), image reviewed Disposition Clinical Impression: Mid back pain, Thoracic back pain, Lumbar radiculopathy, Sciatica Disposition: HOME SELF-CARE Condition: Good Instructions (If sedation given, give patient instructions): Acute Low Back Pain (ED) Is patient prescribed a controlled substance at d/c from ED?: No Referrals: Bharath Lau DO [Primary Care Provider] - 1-2 days Time of Disposition: 19:00
[2022-12-23] MEDS ORDERED: ETODOLAC 400 MG TAB PO STA (17:43)
[2022-12-23] MEDS ORDERED: LIDOCAINE 5% PATCH TOPICAL STA (17:43)
[2022-12-23] MEDS ORDERED: dexAMETHasone 2 MG TAB PO STA (17:43)
[2022-12-23] MEDS ORDERED: HYDROmorphone 1 MG/ML 1 ML SYRINGE IM STA (17:43)
--- NOTE | 2022-12-23 18:31 | CT ---
EXAMINATION TYPE: CT lumbar spine wo con CT DLP: 1679.6 mGycm, Automated exposure control for dose reduction was used. DATE OF EXAM: 12/23/2022 6:19 PM COMPARISON: None. CLINICAL INDICATION:Female, 62 years old with history of back pain, low back pain, no injury TECHNIQUE: Multiple axial images were obtained from the midportion of T11 through the sacroiliac cedric nts. Soft tissue and bone windows in coronal and sagittal planes were obtained and reviewed. Contrast used: none. Oral contrast used: none. FINDINGS: Alignment: There are 5 lumbar type vertebral bodies with scoliosis alignment apex left L2. Bone: There is degeneration changes with osteophyte formation. there is significant facet joint arthr opathy changes throughout the visualized spine. Discs: T12-L1: No spinal canal or neural foraminal stenosis is identified. L1-L2: No spinal canal or neural foraminal stenosis is identified. L2-L3: Facet joint arthropathy and disc bulging result with mild spinal canal stenosis and moderate b ilateral neural foraminal stenosis. L3-L4: Facet joint arthropathy and disc bulging result with moderate spinal canal stenosis and modera te bilateral neural foraminal stenosis. Suspected extruded degenerative gas from the left facet joint . L4-L5: Facet joint arthropathy and disc bulging result with moderate spinal canal stenosis and moder ate bilateral neural foraminal stenosis. L5-S1: Facet joint arthropathy and disc bulging result with mild spinal canal stenosis and mild bilat eral neural foraminal stenosis. Other: Scattered colonic diverticula are present. Partially visualized fixation hardware in the left hip. Atherosclerosis of the arterial vasculature. IMPRESSION: 1. No evidence for spinal fracture. 2. Advanced degeneration changes with associated scoliosis. There is multilevel at least moderate spi nal canal stenosis and neural foraminal stenosis.
[2022-12-23] MEDS ORDERED: ACET/COD 300 MG/30 MG STARTER PACK 6 TAB BTL PO STA (19:19)
== END 2022-12-23 19:37 | disposition home or self-care (01) ==
LOC: EC 15:58
DX: M54.6 Pain in thoracic spine (principal); M54.16 Radiculopathy, lumbar region; M54.30 Sciatica, unspecified side; I10 Essential (primary) hypertension; E11.9 Type 2 diabetes mellitus without complications; E78.5 Hyperlipidemia, unspecified; Z87.891 Personal history of nicotine dependence; Z79.899 Other long term (current) drug therapy; Z88.1 Allergy status to other antibiotic agents; Z88.5 Allergy status to narcotic agent
CPT/HCPCS: 72131; 99284; 96372; J1170; J8540

== ENCOUNTER → 2023-10-17 | Outpatient (CLI) | payer MEDICARE, OTHER ==
[2023-10-17 11:16] LABS: Prothrombin Time 11.3 sec (10.0-12.5)
[2023-10-17 18:07] LABS: HGB 11.6 g/dL (12.0-15.0); MCH 29.3 pg (27.0-32.0); MCHC 32.2 g/dL (32.0-37.0); MCV 90.9 FL (80.0-97.0); Mean Platelet Volume 10.3 FL (9.5-12.2); NRBC Per 100 WBC 0 X 10*3/uL (0.00-0.01); Platelet Count 303 X 10*3/uL (140-440); RBC 3.96 X 10*6/uL (4.10-5.20); RDW 13.3 % (11.5-14.5); WBC 3.85 X 10*3/uL (4.50-10.00)
[2023-10-17 19:42] LABS: % Iron Saturation 22.12 (12.00-45.00); ALT 24 U/L (8-44); AST 31 U/L (13-35); Albumin 4.5 g/dL (3.8-4.9); Albumin/Globulin Ratio 1.88 Ratio (1.60-3.17); Alkaline Phosphatase 37 U/L (41-126); BUN/Creat Ratio 34.62 Ratio (12.00-20.00); Blood Urea Nitrogen 27.7 mg/dL (9.0-27.0); Calcium 9.8 mg/dL (8.7-10.3); Carbon Dioxide 23.9 mmol/L (21.6-31.8); Chloride 103 mmol/L (96-109); Chol/HDL Ratio 2.49 Ratio; Globulin 2.4 g/dL (1.6-3.3); Glucose 111 mg/dL (70-110); Iron 117 UG/DL (50-170); Phosphorus 3.4 mg/dL (2.4-5.1); Sodium 139 mmol/L (135-145); Total Bilirubin 0.2 mg/dL (0.3-1.2); Total Iron Binding Capacity 529 UG/DL (228-460); Total Protein 6.9 g/dL (6.2-8.2); VLDL Calculation 14.28 mg/dL (5.00-40.00)
[2023-10-18 15:26] LABS: Zinc, Serum 103 ug/dL (60-130)
== END | disposition home or self-care (01) ==
LOC: LABWHC1 09:50
PROVIDERS: ATTEND Surgery Plastic and Reconstructive Surgery
DX: E66.01 Morbid (severe) obesity due to excess calories (principal); E89.1 Postprocedural hypoinsulinemia; E50.8 Other manifestations of vitamin A deficiency; K91.2 Postsurgical malabsorption, not elsewhere classified; E44.0 Moderate protein-calorie malnutrition; E44.1 Mild protein-calorie malnutrition; E45 Retarded development following protein-calorie malnutrition; E46 Unspecified protein-calorie malnutrition; E55.9 Vitamin D deficiency, unspecified; K74.1 Hepatic sclerosis; N19 Unspecified kidney failure; T56.894A Toxic effect of other metals, undetermined, initial encounter; K50.90 Crohn's disease, unspecified, without complications; R00.1 Bradycardia, unspecified
CPT/HCPCS: 36415; 80053; 80061; 80307; 80323; 82306; 82525; 82607; 82728; 82746; 83036; 83540; 83550; 83735; 83970; 84100; 84134; 84255; 84425; 84443; 84590; 84630; 85027; 85610; 85730; 93005

== ENCOUNTER → 2023-10-21 | Day surgery (SDC) | payer MEDICARE, OTHER ==
[~2023-10-21] MED LIST: LIDOCAINE 1% (10MG/ML) FOR IV START INTRADERMA PRN; LIDOCAINE 2% (PF) 20 MG/ML 5 ML VIAL ONE; ONDANSETRON 4 MG/2 ML VIAL IVP PRN; PROPOFOL 10 MG/ML 20 ML VIAL IV ONE
[2023-10-21] MEDS: LACTATED RINGERS 1,000 ML IV SCH (07:10)
[2023-10-21 07:33] LABS: Glucose,Whole Blood 96 mg/dL (70-110)
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
[2023-10-21 07:41] VITALS: TEMP 96.8
--- NOTE | 2023-10-21 08:08 | P.PCN ---
Date of Procedure: 10/21/23 Description of Procedure: PREOPERATIVE DIAGNOSIS: Gastroesophageal reflux disease. Morbid obesity. History of marijuana use POSTOPERATIVE DIAGNOSIS: Gastroesophageal reflux disease. Morbid obesity. Gastritis. Diaphragmatic hiatal hernia OPERATION: Esophagogastroduodenoscopy with biopsies along esophagus, antrum and duodenum SURGEON: Rachele Perez MD ANESTHESIA: MAC. INDICATIONS: The patient is a 63-year-old female who presents with reflux disease. Benefits and risks of the procedure were described. Informed consent was obtained. DESCRIPTION: The patient was brought into the endoscopy suite and laid in the left lateral decubitus position. An Olympus gastroscope was passed along the posterior oropharynx down to the distal esophagus where the squamocolumnar junction was encountered at 39 cm from the incisors. The stomach was entered and no bile reflux was found. Additional findings are listed below. Biopsies with cold forceps were obtained of the antrum. The first through third portion of the duodenum was examined. Retroflexion of the scope confirmed Hill grade 2 lower esophageal valve. The squamocolumnar junction demonstrated LA grade B erosive esophagitis. The stomach was desufflated. The patient tolerated the procedure well. FINDINGS: Squamocolumnar junction 39 cm from the incisors. Diaphragmatic hiatus at 40 cm. Hiatal hernia, 1 cm Hill grade 2 lower esophageal valve. LA grade B erosive esophagitis. Biopsies obtained Biopsies obtained of the duodenum. Chronic gastritis with biopsies obtained. RECOMMENDATIONS: Upper endoscopy as needed. Plan - Discharge Summary Discharge Rx Participant: No New Discharge Prescriptions: Continue Vitamin E 400 unit PO DAILY lisinopriL [Zestril] 5 mg PO DAILY Ibuprofen [Motrin] 800 mg PO TID PRN PRN Reason: Pain Gabapentin [Neurontin] 600 mg PO TID PRN PRN Reason: Pain Fenofibrate [Lofibra] 160 mg PO DAILY Ezetimibe [Zetia] 10 mg PO DAILY Atorvastatin [Lipitor] 20 mg PO DAILY Multivitamins, Thera [Multivitamin (formulary)] 1 tab PO DAILY Pantoprazole Sodium [Protonix] 40 mg PO DAILY #30 tablet.dr Aspirin 81 mg PO DAILY Unk Stool Softner 1 tab PO DAILY Unk Probiotic 1 tab PO DAILY Unk Glucosamine 1 tab PO DAILY OXcarbazepine [Trileptal] 300 mg PO BID Unk Magnesium 1 tab PO DAILY Unk Echinacea 1 tab PO DAILY Discharge Medication List Atorvastatin [Lipitor] 20 mg PO DAILY 10/10/20 [History] Ezetimibe [Zetia] 10 mg PO DAILY 10/10/20 [History] Fenofibrate [Lofibra] 160 mg PO DAILY 10/10/20 [History] Gabapentin [Neurontin] 600 mg PO TID PRN 10/10/20 [History] Ibuprofen [Motrin] 800 mg PO TID PRN 10/10/20 [History] Multivitamins, Thera [Multivitamin (formulary)] 1 tab PO DAILY 10/10/20 [History] Vitamin E 400 unit PO DAILY 10/10/20 [History] lisinopriL [Zestril] 5 mg PO DAILY 10/10/20 [History] Pantoprazole Sodium [Protonix] 40 mg PO DAILY #30 tablet. 10/11/20 [Rx] OXcarbazepine [Trileptal] 300 mg PO BID 09/17/23 [History] Aspirin 81 mg PO DAILY 10/17/23 [History] Unk Echinacea 1 tab PO DAILY 10/17/23 [History] Unk Glucosamine 1 tab PO DAILY 10/17/23 [History] Unk Magnesium 1 tab PO DAILY 10/17/23 [History] Unk Probiotic 1 tab PO DAILY 10/17/23 [History] Unk Stool Softner 1 tab PO DAILY 10/17/23 [History] [facility]Ref[facility] [place] [facility] [place] [facility] Patient Instructions/Handouts: Hiatal Hernia (DC) Discharge Disposition: HOME SELF-CARE
[2023-10-21 08:16] VITALS: RESP 12
[2023-10-21 08:20] LABS: Glucose,Whole Blood 91 mg/dL (70-110)
[2023-10-21 08:51] VITALS: BP 142/79; PULSE 74
== END | disposition home or self-care (01) ==
LOC: ORWHC2ENDO 06:17
PROVIDERS: ATTEND Surgery Plastic and Reconstructive Surgery
DX: K29.50 Unspecified chronic gastritis without bleeding (principal); K21.00 Gastro-esophageal reflux disease with esophagitis, without bleeding; K44.9 Diaphragmatic hernia without obstruction or gangrene; I10 Essential (primary) hypertension; E78.5 Hyperlipidemia, unspecified; E11.9 Type 2 diabetes mellitus without complications; M19.90 Unspecified osteoarthritis, unspecified site; G40.909 Epilepsy, unspecified, not intractable, without status epilepticus; G89.29 Other chronic pain; F12.90 Cannabis use, unspecified, uncomplicated; Z87.891 Personal history of nicotine dependence; Z82.49 Family history of ischemic heart disease and other diseases of the circulatory system; Z79.899 Other long term (current) drug therapy; Z79.82 Long term (current) use of aspirin; Z88.5 Allergy status to narcotic agent; Z86.73 Personal history of transient ischemic attack (TIA), and cerebral infarction without residual deficits; Z98.890 Other specified postprocedural states; Z90.710 Acquired absence of both cervix and uterus
CPT/HCPCS: 88305; 43239; J2704; J2001

== ENCOUNTER → 2023-11-13 | Outpatient (CLI) | payer MEDICARE, OTHER ==
--- NOTE | 2023-11-13 15:16 | P.BASOAP ---
Subjective Progress Note Date: 11/13/23 EKG reviewed. EGD reveiwed. Labs reviewed. Needs hiatal hernia repair. Reports atypical chest pain, She is losing weigght without effort 10 pounds. She had ECHO in Aug. Bx reviewed. Objective - Vital Signs Vital signs: Vital Signs Temp 98.0 F 11/13/23 14:44 Pulse 82 11/13/23 14:44 Resp BP 123/85 11/13/23 14:44 Pulse Ox FiO2 Intake & Output 11/12/23 11/13/23 11/13/23 18:59 06:59 18:59 Weight 87.362 kg Assessment/Plan Plan: Date: 11/13/23 Initial Weight: 92.533 kg Initial BMI: 38.5 Current Weight: 87.362 kg Current BMI: 36.3 Type of Surgery: Total Volume in Band: Previous Volume: Volume Removed: Volume Added: Band Size:
[2023-11-13 15:21] VITALS: BP 123/85; PULSE 82; TEMP 98; BMI 36.3
== END ==
LOC: BARWHC3 14:32
PROVIDERS: ATTEND Surgery Plastic and Reconstructive Surgery
DX: E66.01 Morbid (severe) obesity due to excess calories (principal); Z53.9 Procedure and treatment not carried out, unspecified reason
CPT/HCPCS: 99211

== ENCOUNTER → 2023-11-18 | Outpatient (CLI) | payer MEDICARE, OTHER ==
[2023-11-18 15:30] VITALS: BMI 36.6
== END ==
LOC: BARWHC3 12:55
PROVIDERS: ATTEND Surgery Plastic and Reconstructive Surgery
DX: E66.01 Morbid (severe) obesity due to excess calories (principal); Z71.3 Dietary counseling and surveillance; Z68.36 Body mass index [BMI] 36.0-36.9, adult; Z88.5 Allergy status to narcotic agent; Z88.1 Allergy status to other antibiotic agents
CPT/HCPCS: 97804; 99211

== ENCOUNTER → 2023-12-12 | Outpatient (CLI) | payer MEDICARE, OTHER ==
[2023-12-12 19:21] LABS: Basophils # (A) 0.02 X 10*3/uL (0.00-0.10); Basophils % (A) 0.3 %; Eosinophils # (A) 0.16 X 10*3/uL (0.04-0.35); Eosinophils % (A) 2.7 %; HCT 35.7 % (37.2-46.3); HGB 11.6 g/dL (12.0-15.0); Lymphocytes # (A) 1.65 X 10*3/uL (0.90-5.00); Lymphocytes % (A) 27.7 %; MCH 29.7 pg (27.0-32.0); MCHC 32.5 g/dL (32.0-37.0); MCV 91.3 FL (80.0-97.0); Mean Platelet Volume 10.7 FL (9.5-12.2); Monocytes # (A) 0.58 X 10*3/uL (0.20-1.00); Monocytes % (A) 9.7 %; NRBC Per 100 WBC 0 X 10*3/uL (0.00-0.01); Neutrophils # (A) 3.53 X 10*3/uL (1.80-7.70); Neutrophils % (A) 59.4 %; Platelet Count 331 X 10*3/uL (140-440); RBC 3.91 X 10*6/uL (4.10-5.20); RDW 13.5 % (11.5-14.5); WBC 5.95 X 10*3/uL (4.50-10.00)
[2023-12-13 02:04] LABS: ALT 17 U/L (8-44); AST 31 U/L (13-35); Albumin 4.5 g/dL (3.8-4.9); Albumin/Globulin Ratio 2.14 Ratio (1.60-3.17); Alkaline Phosphatase 39 U/L (41-126); BUN/Creat Ratio 35.11 Ratio (12.00-20.00); Blood Urea Nitrogen 31.6 mg/dL (9.0-27.0); Calcium 9.7 mg/dL (8.7-10.3); Carbon Dioxide 22.9 mmol/L (21.6-31.8); Chloride 102 mmol/L (96-109); Globulin 2.1 g/dL (1.6-3.3); Glucose 85 mg/dL (70-110); Potassium 4.4 mmol/L (3.5-5.5); Sodium 137 mmol/L (135-145); Total Bilirubin 0.2 mg/dL (0.3-1.2); Total Protein 6.6 g/dL (6.2-8.2)
== END | disposition home or self-care (01) ==
LOC: LABPAT 15:07
PROVIDERS: ATTEND Surgery Plastic and Reconstructive Surgery
DX: Z01.812 Encounter for preprocedural laboratory examination (principal)
CPT/HCPCS: 80053; 85025; 86850; 86900; 86901

== ENCOUNTER 2023-12-16 10:55 | Observation (INO) | payer MEDICARE, OTHER ==
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
[~2023-12-16 10:55] MED LIST changes: -LIDOCAINE 2% (PF) 20 MG/ML 5 ML VIAL ONE; -ONDANSETRON 4 MG/2 ML VIAL IVP PRN; -PROPOFOL 10 MG/ML 20 ML VIAL IV ONE; +droPERidol 5 MG/2 ML VIAL IVP PRN
[2023-12-16] MEDS: LACTATED RINGERS 1,000 ML IV SCH (11:51)
[2023-12-16] MEDS: ACETAMINOPHEN TAB 500 MG TAB PO PRN (12:11)
[2023-12-16] MEDS: CHLORHEXIDINE GLUCONATE 15 ML CUP MUCOUS MEM STA (12:11)
[2023-12-16 12:21] LABS: Glucose,Whole Blood 99 mg/dL (70-110)
[2023-12-16] MEDS: PANTOPRAZOLE 40 MG/10 ML VIAL IVP STA (12:22)
[2023-12-16] MEDS: ONDANSETRON 4 MG/2 ML VIAL IVP ONE (12:22)
[2023-12-16] MEDS: DEXAMETHASONE SOD PHOSPHATE 4 MG/ML 1 ML VIAL IV ONE (12:22)
[2023-12-16] MEDS: HEPARIN SODIUM,PORCINE 5,000 UNIT/ML 1 ML VIAL SQ PRN (12:29)
[2023-12-16] MEDS: SCOPOLAMINE 1 MG/72 HR PATCH TRANSDERM ONE (12:29)
[2023-12-16] MEDS ORDERED: SUCCINYLCHOLINE CHLORIDE 200 MG/10 ML VIAL IV ONE (12:55)
[2023-12-16] MEDS ORDERED: LIDOCAINE 1% INJ 10MG/ML (20 ML MDV) ONE (12:55)
[2023-12-16] MEDS ORDERED: PHENYLEPHRINE 10 MG/ML VIAL ONE (12:55)
[2023-12-16] MEDS ORDERED: MIDAZOLAM 2 MG/2 ML VIAL ONE (12:55)
[2023-12-16] MEDS ORDERED: HYDROmorphone (PF) 1 MG/ML ONE (12:55)
[2023-12-16] MEDS ORDERED: PROPOFOL 10 MG/ML 20 ML VIAL IV ONE (12:55)
[2023-12-16] MEDS ORDERED: ROCURONIUM 10 MG/ML (5 ML VIAL) IV ONE (12:55)
[2023-12-16] MEDS ORDERED: fentaNYL (PF) 50 MCG/ML 2 ML AMP ONE (12:55)
[2023-12-16] MEDS ORDERED: ePHEDrine 50 MG/ML 1 ML VIAL ONE (12:55)
[2023-12-16] MEDS ORDERED: NEOSTIGMINE 1 MG/ML 10 ML VIAL ONE (12:55)
[2023-12-16] MEDS ORDERED: GLYCOPYRROLATE 0.2 MG/ML 2 ML VIAL ONE (12:55)
[2023-12-16] MEDS: LIDOCAINE 1%-EPI 1:100,000 20 ML VIAL SQ ONE (13:29)
[2023-12-16] MEDS: HYDROmorphone 0.5 MG/0.5 ML SYRINGE IVP PRN (15:28)
[2023-12-16] MEDS ORDERED: NALOXONE 0.4 MG/ML 1 ML VIAL IV PRN (15:37)
[2023-12-16] MEDS: ONDANSETRON 4 MG/2 ML VIAL IVP PRN (17:04)
[2023-12-16] MEDS: DEXAMETHASONE SOD PHOSPHATE 10 MG/ML 1 ML VIAL IVP STA (17:45)
[2023-12-16] MEDS: SODIUM CHLORIDE 0.9% 1,000 ML IV ONE (17:46)
[2023-12-16] MEDS: fentaNYL PCA 500 MCG/50 ML BAG IV SCH (17:46)
--- NOTE | 2023-12-16 19:39 | P.OP ---
Date of Procedure: 12/16/23 Description of Procedure: SURGEON: RED SULLIVAN MD PREOPERATIVE DIAGNOSES: 1. Gastroesophageal reflux disease. 2. Paraesophageal hiatal hernia, midline. 3. Hypertensive heart disease 4. Depressive disorder 5. Seizure disorder 6. Hyperlipidemia 7. Obesity due to excess calories, BMI 34.3 8. Diabetes type 2, not insulin-dependent 9. History of cerebrovascular accident/transient ischemic attack POSTOPERATIVE DIAGNOSES: 1. Gastroesophageal reflux disease. 2. Paraesophageal hiatal hernia, midline, 4 x 3 cm 3. Hypertensive heart disease 4. Depressive disorder 5. Seizure disorder 6. Hyperlipidemia 7. Obesity due to excess calories, BMI 34.3 8. Diabetes type 2, not insulin-dependent 9. History of cerebrovascular accident/transient ischemic attack OPERATION: 1. Robotic-assisted da Haley Xi laparoscopic reduction and repair of incarcerated paraesophageal hiatal hernia, 4 x 3 cm, with [place] Biopatch A 8 x 8 cm 2. Intraoperative esophagogastroduodenoscopy 3. Esophageal dilation 56-Comoran bougie ANESTHESIA: General with local anesthetic. ESTIMATED BLOOD LOSS: 5 mL SPECIMENS REMOVED: None. COMPLICATIONS: None. FINDINGS: 1. No hepatomegaly 2. Bougie 56-Comor[place] placed 3. 4 x 4 cm paraesophageal incarcerated diaphragmatic hiatal hernia with dissection into the mediastinum. 4. Intra-abdominal esophageal length over 3 cm obtained 5. [place] Biopatch A onlay mesh placed. INDICATIONS: The patient is a 63-year-old female who presents with regurgitation, gastroesophageal reflux disease and a symptomatic diaphragmatic hiatal hernia. Preoperative workup including upper endoscopy demonstrated a Hill grade 4 lower esophageal valve. Given the severity of her symptoms, particularly of her symptomatic diaphragmatic hiatal hernia, she had elected for surgical intervention. Benefits and risks including bleeding, infection, recurrence, dysphagia, injury to the lung, need for further surgery was described at length. Informed consent was obtained. DESCRIPTION: The patient was brought into the operating room and placed in supine position. Preoperatively she had received Heparin subcutaneously for DVT prophylaxis. After general induction, the abdomen was prepped and draped in standard sterile fashion. The patient had previously voided prior to coming to the ope rating room. Ioban draping was placed along the abdomen. A timeout protocol was confirmed with the surgical team, for which the patient's name, procedure to be performed including DVT prophylaxis with bilateral SCDs, and preoperative antibiotics were also confirmed. A robotic da Haley Xi system was prepped and primed. At 10 cm from the xiphoid to just below the umbilicus, proposed port sites were marked with indelible marker along the left axillary line, left mid-clavicular line with each ports were marked 10 cm from each other. A 5 mm 0 degrees laparoscopic trocar entry was performed along the left upper quadrant. The abdomen was insufflated to 15 mmHg pressure she tolerated well. Diagnostic laparoscopy demonstrated no injury to bowel, viscera, or mesentery. The liver surface was unremarkable. No injury had occurred to the small bowel or viscera. Along the hiatus, a defect was found anteriorly. Next, one 8 mm robotic port was placed along the right upper abdomen. An 8-mm port was were placed along the left lateral abdominal wall. The camera 8-mm port was maintained along the epigastrium via the hernia defect. Another 12 mm port was placed along the left upper abdominal wall after exchanging the 5 mm port. Please note that the ports were placed at least 20 cm away from the target anatomy. Care was taken to check that each robotic arm were safely away from collision with the bed or the patient. At the epigastrium, a median sized Isatu liver retractor was placed under direct visualization with the Iron Leak Patcher placed over the right shoulder of the patient. The additional third robotic arm was placed along the left aspect of the patient. The patient was repositioned in reverse Trendelenburg position at 25-degrees after lowering the bed. The robot was docked above the left side of the patient. Using a grasper for arm 3, a grasper for arm 1, including vessel sealer for arm 2, the robotic system was docked and primed as described. Instruments were interchanged by the assistant administrator. I had sat at the console. The gastrohepatic ligament was cleaved using a vessel sealer. Next, the phrenoesophageal ligament was mobilized and the distal esophagus was mobilized circumferentially with care of to the bilateral vagi nerves. The left and right crura was identified. A midline hiatal hernia and sac was found. Circumferentially, the hernia sac was excised and brought into the peritoneal cavity. Care was taken to avoid any gastrotomy to the upper pole of the stomach. The measured defect was consistent with 4 cm axial length and 3 cm in width. The distal esophagus at least 3 cm was brought into the abdominal cavity. Once the hiatus and crura was dissected, 2-0 VLOC nonabsorbable suture was placed to reapproximate the diaphragmatic hiatus posteriorly and anteriorly. To buttress the repair, a [place] Biopatch A was prepared along the back table as to reinforce the repair as an underlay. The mesh was cut in quarters and was placed along the crural repair and tagged using nonabsorbable 2-0 VLOC. Mesh repair was placed anteriorly and posteriorly. I went to the head of the bed to perform intraoperative esophagogastroduodenoscopy. A 56-Comoran bougie was carefully placed along the posterior oropharynx through the hiatus and then removed. An Olympus gastroscope was passed through posterior oropharynx, where the GE junction was found distal to the diaphragmatic hiatus. The intra-abdominal esophageal length obtained during the case was over 3 cm. The stomach was entered. Retroflexion of the scope confirmed a Hill grade 1 lower esophageal valve. Duodenal ulcers along the first portion of duodenum was confirmed without bleeding. The stomach had been desufflated. No evidence of leaks were found either of the mucosal defects of the esophagus or stomach. The hiatal closure was consistent with a 56 [place] bougie as a bougie was passed. This concluded the endoscopic portion of the case. The robot was undocked from the patient. I re-scrubbed into the case. All instruments and pneumoperitoneum were evacuated from the abdominal cavity. Incisions were reapproximated using 4-0 Monocryl in an interrupted subcuticular fashion. Liquid glue was applied to the skin. Local anesthetic was infiltrated in all wounds for postop analgesia. Multiple intra-abdominal films were obtained. At the end of the procedure, needle, sponge, and instrument count was verified correct by the surgical physician assistant. The patient had tolerated the procedure well and was taken to the postanesthesia unit in stable condition. Plan - Discharge Summary Discharge Rx Participant: No New Discharge Prescriptions: No Action Vitamin E 400 unit PO QAM lisinopriL [Zestril] 5 mg PO QAM Ibuprofen [Motrin] 800 mg PO TID PRN PRN Reason: Pain Gabapentin [Neurontin] 600 mg PO TID PRN PRN Reason: Pain Fenofibrate [Lofibra] 160 mg PO QAM Ezetimibe [Zetia] 10 mg PO QAM Atorvastatin [Lipitor] 20 mg PO QAM Multivitamins, Thera [Multivitamin (formulary)] 1 tab PO QAM Aspirin 81 mg PO QAM Unk Stool Softner 1 tab PO QAM Unk Probiotic 1 tab PO QAM Unk Glucosamine 1 tab PO QAM Pantoprazole Sodium [Protonix] 40 mg PO QAM OXcarbazepine [Trileptal] 300 mg PO BID Unk Magnesium 1 tab PO QAM Unk Echinacea 1 tab PO QAM Discharge Medication List Atorvastatin [Lipitor] 20 mg PO QAM 10/10/20 [History] Ezetimibe [Zetia] 10 mg PO QAM 10/10/20 [History] Fenofibrate [Lofibra] 160 mg PO QAM 10/10/20 [History] Gabapentin [Neurontin] 600 mg PO TID PRN 10/10/20 [History] Ibuprofen [Motrin] 800 mg PO TID PRN 10/10/20 [History] Multivitamins, Thera [Multivitamin (formulary)] 1 tab PO QAM 10/10/20 [History] Vitamin E 400 unit PO QAM 10/10/20 [History] lisinopriL [Zestril] 5 mg PO QAM 10/10/20 [History] OXcarbazepine [Trileptal] 300 mg PO BID 09/17/23 [History] Aspirin 81 mg PO QAM 10/17/23 [History] Unk Echinacea 1 tab PO QAM 10/17/23 [History] Unk Glucosamine 1 tab PO QAM 10/17/23 [History] Unk Magnesium 1 tab PO QAM 10/17/23 [History] Unk Probiotic 1 tab PO QAM 10/17/23 [History] Unk Stool Softner 1 tab PO QAM 10/17/23 [History] Pantoprazole Sodium [Protonix] 40 mg PO QAM 12/12/23 [History]
[2023-12-16] MEDS: ACETAMINOPHEN IV (For NPO) 1,000 MG in EMPTY BAG 1 BAG IVPB SCH (20:12)
[2023-12-16] MEDS: DEXAMETHASONE SOD PHOSPHATE 4 MG/ML 1 ML VIAL IVP SCH (20:18)
[2023-12-16] MEDS: KETOROLAC 15 MG/ML 1 ML VIAL IVP SCH (20:19)
[2023-12-16] MEDS: HEPARIN SODIUM,PORCINE 5,000 UNIT/ML 1 ML VIAL SQ SCH (20:20)
[2023-12-16] MEDS: METOCLOPRAMIDE 5 MG/ML 2 ML VIAL IVP SCH (20:51)
[2023-12-16] MEDS: HYDROmorphone 1 MG/ML 1 ML SYRINGE IVP PRN (20:52)
[2023-12-16] MEDS: GABAPENTIN 300 MG CAP PO PRN (20:53)
[2023-12-16] MEDS: OXcarbazepine 300 MG TAB PO SCH (20:59)
[2023-12-17] MEDS: ONDANSETRON 4 MG/2 ML VIAL IVP SCH (01:25)
[2023-12-17] MEDS: SODIUM CHLORIDE 0.9% 1,000 ML IV SCH (04:50)
[2023-12-17 08:24] VITALS: RESP 17
[2023-12-17] MEDS: ASPIRIN 81 MG PO SCH (09:38)
[2023-12-17] MEDS: EZETIMIBE 10 MG TAB PO SCH (09:38)
[2023-12-17] MEDS: lisinopriL 5 MG TAB PO SCH (09:38)
[2023-12-17] MEDS ORDERED: DEXTROSE 50% SYRINGE 50 ML IVP PRN ×2 (09:49)
[2023-12-17 11:50] LABS: Glucose,Whole Blood 112 mg/dL (70-110)
[2023-12-17] MEDS: INSULIN ASPART (NovoLOG) 100 UNIT/ML VIAL SQ SCH (11:54)
[2023-12-17 12:10] VITALS: BMI 34.2
--- NOTE | 2023-12-17 13:04 | FL ---
EXAMINATION TYPE: FL esophagus cervic/pharynx DATE OF EXAM: 12/17/2023 HISTORY: 63-year-old female status post hiatal hernia repair, rule out leak/obstruction. COMPARISON: NONE TECHNIQUE: A double contrast esophagram is performed utilizing air and barium. A total of 35 second s of fluoroscopic time was utilized during procedure and 25 images obtained. Total dose area product (DAP) in uGy*m?, mGy*cm? (or similar) : 75. FINDINGS: The patient swallowed oral contrast without difficulty or delay. There is normal course of the esophagus. Mild tertiary peristaltic waves are noted. Initial hesitancy in passage of contrast fr om esophagus into the stomach. This resolves as the study progresses. Satisfactory passage into the s tomach status post hiatal hernia repair. No residual hiatal hernia seen. No extravasation of contrast to suggest leak. No free intraperitoneal air is seen below the hemidiaphragms. IMPRESSION: No evidence for obstruction or leak status post hiatal hernia repair.
[2023-12-17 14:00] VITALS: BP 136/67; PULSE 85; TEMP 97.6
--- NOTE | 2023-12-17 15:05 | P.DS ---
Providers Date of admission: 12/16/23 14:30 Expected date of discharge: 12/17/23 Attending physician: Rachele Perez Consults: 12/16/23 19:52 Consult Physician Routine Consulting Provider: Coretta Velasco Consult Reason/Comments: Medical management Do you want consulting provider notified?: Yes Primary care physician: [facility] Course: Discharge diagnosis 1. Gastroesophageal reflux disease. 2. Paraesophageal hiatal hernia, midline, 4 x 3 cm 3. Hypertensive heart disease 4. Depressive disorder 5. Seizure disorder 6. Hyperlipidemia 7. Obesity due to excess calories, BMI 34.3 8. Diabetes type 2, not insulin-dependent 9. History of cerebrovascular accident/transient ischemic attack Hospital course The patient is a 63-year-old female who presents with regurgitation, gastroesophageal reflux disease and a symptomatic diaphragmatic hiatal hernia. Patient is status post Robotic-assisted da Haley Xi laparoscopic reduction and repair of incarcerated paraesophageal hiatal hernia with [place] [employer]. Patient tolerated surgery well. Her pain is controlled. Upper GI shows no evidence of leak or obstruction. She is tolerating diet. She has been up and ambulating. She is afebrile. She is stable for discharge. Physician Information Systems Manager note has been reviewed by physician. Signing provider agrees with the documented findings, assessment, and plan of care. Patient Condition at Discharge: Stable Plan - Discharge Summary Discharge Rx Participant: No New Discharge Prescriptions: New bisacodyL [Dulcolax] 5 mg PO DAILY PRN #10 tab PRN Reason: Constipation Simethicone 40 mg/0.6 ml Drops [Mylicon Drops] 40 mg PO PCHS PRN #30 ml PRN Reason: Gas Acetaminophen Tab [Tylenol] 1,000 mg PO Q6HR PRN #30 tablet PRN Reason: Pain Ondansetron Odt [Zofran Odt] 4 mg PO Q8HR PRN #9 tab PRN Reason: Nausea Continue lisinopriL [Zestril] 5 mg PO QAM Ibuprofen [Motrin] 800 mg PO TID PRN PRN Reason: Pain Gabapentin [Neurontin] 600 mg PO TID PRN PRN Reason: Pain Fenofibrate [Lofibra] 160 mg PO QAM Ezetimibe [Zetia] 10 mg PO QAM Atorvastatin [Lipitor] 20 mg PO QAM Aspirin 81 mg PO QAM Pantoprazole Sodium [Protonix] 40 mg PO QAM OXcarbazepine [Trileptal] 300 mg PO BID No Action Vitamin E 400 unit PO QAM Multivitamins, Thera [Multivitamin (formulary)] 1 tab PO QAM Unk Stool Softner 1 tab PO QAM Unk Probiotic 1 tab PO QAM Unk Glucosamine 1 tab PO QAM Unk Magnesium 1 tab PO QAM Unk Echinacea 1 tab PO QAM Discharge Medication List Atorvastatin [Lipitor] 20 mg PO QAM 10/10/20 [History] Ezetimibe [Zetia] 10 mg PO QAM 10/10/20 [History] Fenofibrate [Lofibra] 160 mg PO QAM 10/10/20 [History] Gabapentin [Neurontin] 600 mg PO TID PRN 10/10/20 [History] Ibuprofen [Motrin] 800 mg PO TID PRN 10/10/20 [History] Multivitamins, Thera [Multivitamin (formulary)] 1 tab PO QAM 10/10/20 [History] Vitamin E 400 unit PO QAM 10/10/20 [History] lisinopriL [Zestril] 5 mg PO QAM 10/10/20 [History] OXcarbazepine [Trileptal] 300 mg PO BID 09/17/23 [History] Aspirin 81 mg PO QAM 10/17/23 [History] Unk Echinacea 1 tab PO QAM 10/17/23 [History] Unk Glucosamine 1 tab PO QAM 10/17/23 [History] Unk Magnesium 1 tab PO QAM 10/17/23 [History] Unk Probiotic 1 tab PO QAM 10/17/23 [History] Unk Stool Softner 1 tab PO QAM 10/17/23 [History] Pantoprazole Sodium [Protonix] 40 mg PO QAM 12/12/23 [History] Acetaminophen Tab [Tylenol] 1,000 mg PO Q6HR PRN #30 tablet 12/17/23 [Rx] Ondansetron Odt [Zofran Odt] 4 mg PO Q8HR PRN #9 tab 12/17/23 [Rx] Simethicone 40 mg/0.6 ml Drops [Mylicon Drops] 40 mg PO PCHS PRN #30 ml 12/17/23 [Rx] bisacodyL [Dulcolax] 5 mg PO DAILY PRN #10 tab 12/17/23 [Rx] [facility]Ref[place]20[facility]23 9:00 am Activity/Diet/Wound Care/Special Instructions: Liquid diet only for 2 weeks No lifting over 4 pounds in 4 weeks May shower No soaking in bath tubs for 2 weeks Please notify your surgeon if you develop nausea and vomiting including new onset of abdominal pain. Please ambulate at all times. Use Simethicone, Gas-X, Tylenol scheduled for the next 24-48 hours for best pain relief. Use ice along incisions for the today to prevent swelling. Please open, cut, crush pills larger than the size of a tic tack No carbonated beverages. No straws. Do not remove scopolamine patch for 3 days, if present Avoid taking vitamins until seen by surgeon Avoiding Gas Avoid drinking through a straw. Do not chew gum or tobacco. These actions cause you to swallow air, which produces excess gas in your stomach. Chew with your mouth closed. Avoid any foods that cause stomach gas and distention. These foods include corn, dried beans, peas, lentils, onions, broccoli, cauliflower and any food from the cabbage family. Avoid carbonated drinks, alcohol, citrus and tomato products. Carbonated drinks (sodas) are not allowed for the first six to eight weeks after surgery. After this time you can try them again in small amounts Clear Liquid Diet The first diet after surgery is the clear liquid diet. It includes the following liquids: Apple juice Cranberry juice Grape juice Chicken broth Beef broth Flavored gelatin (Jell-O) Decaf tea and coffee Caffeinated beverages are permitted based on tolerance Popsicles [place] Islander ice Full Liquid Diet The full liquid diet contains anything on the clear liquid diet, plus: Milk, soy, rice and almond (no chocolate) Cream of wheat, cream of rice, grits Strained creamed soups (no tomato or broccoli) Vanilla and strawberry-flavored ice cream Sherbet Blended, custard styled or whipped yogurt (plain or vanilla only) Vanilla and butterscotch pudding (no chocolate or coconut) Nutritional drinks including Ensure, Boost, Emmet Instant Breakfast (no chocolate-flavored) Note: Dairy products, such as milk, ice cream and pudding, may cause diarrhea in some people just after surgery. You may need to avoid milk products. If so, substitute them with lactose-free beverages, such as soy, rice, Lactaid or almond milks. Discharge Disposition: HOME SELF-CARE
[2023-12-17 16:40] LABS: Glucose,Whole Blood 133 mg/dL (70-110)
--- NOTE | 2023-12-18 00:42 | CONS ---
CONSULTATION REASON FOR CONSULTATION: Advice regarding history of diabetes mellitus and other medical issues, requested by Surgery. HISTORY OF PRESENT ILLNESS: This is a 63-year-old woman with a past medical history of multiple medical problems including diabetes mellitus, history of hypertension, underwent robotic-assisted repair of incarcerated paraesophageal hiatal hernia by Dr. Perez. There is no history of any headache, loss of consciousness or seizures. Blood sugar was found to be 112 at this time. There is no history of any fever, rigors or chills. PAST MEDICAL HISTORY: Reviewed include diabetes mellitus, hypertension, hyperlipidemia, seizure. Rest of the history and rest of the chart is also reviewed. HOME MEDICATIONS: Reviewed include Zestril, dose and rest of medications reviewed. ALLERGIES: Morphine. Rest of allergies noted. FAMILY HISTORY: History of CAD, CABG. SOCIAL HISTORY: Remote history of smoking, THC. REVIEW OF SYSTEMS: A 14-point review is negative except as mentioned earlier. PHYSICAL EXAMINATION: VITAL SIGNS: Pulse is 80, blood pressure 120/70, respirations 17. HEENT: Conjunctivae normal. NECK: No jugular venous distention. CARDIOVASCULAR: S1, S2 muffled. RESPIRATIONS: Diminished at the bases. Few rhonchi, no crackles. ABDOMEN: Soft, status post surgery. LEGS: No edema, no swelling. NERVOUS SYSTEM: Nonfocal. SKIN: No ulcer, rash, bleeding. JOINTS: No active deforming arthropathy. LABORATORY DATA: Accu-Cheks 90 and 112. ASSESSMENT: 1. Status post laparoscopic reduction and repair of incarcerated paraesophageal hiatal hernia. 2. Diabetes mellitus, type 2. 3. Hypertension. 4. Hyperlipidemia. 5. Seizure disorder. 6. Multiple medical issues. RECOMMENDATIONS AND DISCUSSION: This 63-year-old woman presented after surgery. At this time, I recommend to continue the current medications. Monitor blood sugars closely. Resume the home medications, incentive spirometry. DVT prophylaxis. We will follow the patient closely with you. The patient may be asked to follow up with the primary physician after discharge. MMODL / IJN: [id number] /
[2023-12-18] MEDS ORDERED: FENOFIBRATE 160 MG TAB PO SCH (09:00)
[2023-12-18] MEDS ORDERED: PANTOPRAZOLE 40 MG TABLET PO SCH (09:00)
[2023-12-18] MEDS ORDERED: ATORVASTATIN 20 MG TAB PO SCH (09:00)
== END 2023-12-17 18:21 | disposition home or self-care (01) ==
LOC: OR 10:55 → 4SSUR 14:30
PROVIDERS: ADMIT Surgery Plastic and Reconstructive Surgery; ATTEND Surgery Plastic and Reconstructive Surgery
DX: K44.0 Diaphragmatic hernia with obstruction, without gangrene (principal); K21.9 Gastro-esophageal reflux disease without esophagitis; K26.9 Duodenal ulcer, unspecified as acute or chronic, without hemorrhage or perforation; I11.9 Hypertensive heart disease without heart failure; G40.909 Epilepsy, unspecified, not intractable, without status epilepticus; E78.5 Hyperlipidemia, unspecified; E66.09 Other obesity due to excess calories; Z68.34 Body mass index [BMI] 34.0-34.9, adult; E11.9 Type 2 diabetes mellitus without complications; E07.9 Disorder of thyroid, unspecified; I67.9 Cerebrovascular disease, unspecified; F31.9 Bipolar disorder, unspecified; F41.0 Panic disorder [episodic paroxysmal anxiety]; F12.90 Cannabis use, unspecified, uncomplicated; Z79.82 Long term (current) use of aspirin; Z79.899 Other long term (current) drug therapy; Z88.1 Allergy status to other antibiotic agents; Z88.5 Allergy status to narcotic agent; Z87.891 Personal history of nicotine dependence; Z86.73 Personal history of transient ischemic attack (TIA), and cerebral infarction without residual deficits; Z96.642 Presence of left artificial hip joint; Z90.710 Acquired absence of both cervix and uterus; Z98.890 Other specified postprocedural states
CPT/HCPCS: 43282; S2900; 74210; 96372

== ENCOUNTER → 2023-12-20 | Outpatient (CLI) | payer MEDICARE, OTHER ==
[2023-12-20 12:24] VITALS: BP 139/86; PULSE 56; RESP 14; TEMP 98.6; BMI 34.4
--- NOTE | 2024-02-16 18:06 | P.BASOAP ---
Subjective Progress Note Date: 12/20/23 DATE OF SERVICE: 12/20/23 CHIEF COMPLAINT: Morbid obesity HISTORY OF PRESENT ILLNESS: Cindy Contreras is a 63-year-old female status post hiatal hernia repair 12/16/2023. She is postop day 4. She is doing well. She has excellent weight loss over 20 pounds in 3 months, intentional. She denies problems with her incisions. No dysphagia. No reflux. She reports eating a sandwich immediately postop which was against her post [place] diet. She denies any current complaints. At height of 5 feet 1 inches, her ideal body weight is 131 pounds. She comes in 204 pounds. Her highest weight is 240 pounds, BMI 45.4. Her present body mass index is 38.5. She is 73 pounds overweight. PHYSICAL EXAM: VITAL SIGNS: Height 5 foot 1 inches, weight 204 pounds. BMI 38.5 Vital Signs Temp 98.6 F 12/20/23 11:08 Pulse 56 L 12/20/23 11:08 Resp 14 12/20/23 11:08 BP 139/86 12/20/23 11:08 Pulse Ox FiO2 GENERAL: Well-developed in no acute distress. HEENT: No scleral icterus. Extraocular movements grossly intact. Hears conversational speech. No nasal drainage. NECK: Supple without lymphadenopathy. CHEST: Nonlabored respirations with equal bilateral excursions. CARDIOVASCULAR: Regular rate and regular rhythm. Distal 2+ pulses. ABDOMEN: Obese, soft, nontender, nondistended. MUSCULOSKELETAL: No clubbing, cyanosis. NEURO: No focal or lateralizing signs. Cranial nerves 2 through 12 grossly within normal limits. PSYCH: Appropriate affect. Alert and oriented to person, place and time. SKIN: Good skin turgor. Well perfused. STUDIES: Esophagram reviewed from 12/17/2023 demonstrates no obstruction or leak. Minimal presbyesophagus. This is my independent interpretation. ASSESSMENT: 1. Morbid obesity due to excess calories 2. Body mass index of 45.4, initial to 38.5 3. Hyperlipidemia 4. Hypertensive heart disease 5. Neuropathy 6. Seizure disorder 7. Osteoarthritis of the hips 8. Osteoarthritis of the lower back 9. Scoliosis 10. Degenerative joint disease 11. Multiple sclerosis 12. Diabetes type 2, not insulin-dependent 13. Thyroid disorder 14. Hernia of the abdomen 15. Status post hiatal hernia repair PLAN: 1. She may transition to soft diet December 29. 2. In the interim continue protein intake 60 to 90 g daily for optimal recovery. Assessment/Plan Plan: Date: Initial Weight: 92.533 kg Initial BMI: Current Weight: Current BMI: Type of Surgery: Total Volume in Band: Previous Volume: Volume Removed: Volume Added: Band Size:
== END ==
LOC: BARWHC3 09:05
PROVIDERS: ATTEND Surgery Plastic and Reconstructive Surgery
DX: E66.01 Morbid (severe) obesity due to excess calories (principal); E78.5 Hyperlipidemia, unspecified; I11.9 Hypertensive heart disease without heart failure; M16.0 Bilateral primary osteoarthritis of hip; M47.816 Spondylosis without myelopathy or radiculopathy, lumbar region; M41.9 Scoliosis, unspecified; G40.909 Epilepsy, unspecified, not intractable, without status epilepticus; M19.90 Unspecified osteoarthritis, unspecified site; G35 Multiple sclerosis; E11.40 Type 2 diabetes mellitus with diabetic neuropathy, unspecified; E07.9 Disorder of thyroid, unspecified; K46.9 Unspecified abdominal hernia without obstruction or gangrene; Z98.890 Other specified postprocedural states; Z68.42 Body mass index [BMI] 45.0-49.9, adult; Z88.5 Allergy status to narcotic agent; Z88.1 Allergy status to other antibiotic agents; Z79.899 Other long term (current) drug therapy
CPT/HCPCS: 99211

== ENCOUNTER → 2023-12-25 | Outpatient (CLI) | payer MEDICARE, OTHER ==
[2023-12-25 16:26] VITALS: BP 81/58; PULSE 91; RESP 16; TEMP 98.9; BMI 33.0
--- NOTE | 2023-12-25 16:32 | P.BASOAP ---
Subjective Progress Note Date: 12/25/23 She made her own soup with vegetables and then got sick! She started dry heaving. She is not nauseate with water. She was nauseated with taking pills. She was not cutting her medications. She was 240 pounds. She comes in with very low blood pressure. She reports intractable vomiting. She can get her epidural shot. Objective - Vital Signs Vital signs: Vital Signs Temp 98.9 F 12/25/23 16:04 Pulse 91 12/25/23 16:04 Resp 16 12/25/23 16:04 BP 81/58 12/25/23 16:04 Pulse Ox FiO2 Intake & Output 12/24/23 12/25/23 12/25/23 18:59 06:59 18:59 Weight 79.379 kg Assessment/Plan Plan: Date: 12/25/23 Initial Weight: 92.533 kg Initial BMI: 38.5 Current Weight: 79.379 kg Current BMI: 33.0 Type of Surgery: Total Volume in Band: Previous Volume: Volume Removed: Volume Added: Band Size:
--- NOTE | 2023-12-25 16:42 | P.PN ---
Progress Note - Text Progress Note Date: 12/25/23 To whom it may concern: Cindy Contreras is under my surgical care. She just had hiatal hernia surgery 12/16/2023. She may resume epidural injections immediately. Regards, Rachele Perez MD FACS
== END ==
LOC: BARWHC3 15:29
PROVIDERS: ATTEND Surgery Plastic and Reconstructive Surgery
DX: E66.01 Morbid (severe) obesity due to excess calories (principal); K44.9 Diaphragmatic hernia without obstruction or gangrene; E16.2 Hypoglycemia, unspecified; R11.2 Nausea with vomiting, unspecified; Z88.5 Allergy status to narcotic agent; Z88.1 Allergy status to other antibiotic agents; Z68.33 Body mass index [BMI] 33.0-33.9, adult; Z87.891 Personal history of nicotine dependence
CPT/HCPCS: 99211

== ENCOUNTER 2023-12-26 18:32 | Emergency (ER) | payer MEDICARE, OTHER ==
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
[2023-12-26 19:25] LABS: Basophils % (A) 0 %; Eosinophils # (A) 0.2 k/uL (0-0.7); Eosinophils % (A) 2 %; HGB 12.8 gm/dL (11.4-16.0); Lymphocytes # (A) 1.1 k/uL (1.0-4.8); Lymphocytes % (A) 13 %; MCHC 33.6 g/dL (31.0-37.0); MCV 89.3 fL (80.0-100.0); Mean Platelet Volume 7.6; Monocytes # (A) 0.6 k/uL (0-1.0); Monocytes % (A) 7 %; Neutrophils # (A) 6.2 k/uL (1.3-7.7); Neutrophils % (A) 75 %; Platelet Count 331 k/uL (150-450); RBC 4.26 m/uL (3.80-5.40); RDW 13.5 % (11.5-15.5); WBC 8.3 k/uL (3.8-10.6)
[2023-12-26 19:34] LABS: ALT 27 U/L (4-34); AST 40 U/L (14-36); African American GFR (CKD) 58 (>60 ml/min/1.73 sqM); Albumin 4.7 g/dL (3.5-5.0); Alkaline Phosphatase 56 U/L (38-126); Amylase 54 U/L (30-110); Anion Gap 17 mmol/L; Blood Urea Nitrogen 27 mg/dL (7-17); Calcium 10.3 mg/dL (8.4-10.2); Carbon Dioxide 19 mmol/L (22-30); Chloride 95 mmol/L (98-107); Glucose 134 mg/dL (74-99); Lipase 119 U/L (23-300); Magnesium 1.5 mg/dL (1.6-2.3); Non-African American GFR(CKD) 50 (>60 ml/min/1.73 sqM); Potassium 3.5 mmol/L (3.5-5.1); Sodium 131 mmol/L (137-145); Total Bilirubin 0.8 mg/dL (0.2-1.3); Total Protein 7.3 g/dL (6.3-8.2)
[2023-12-26] MEDS: HYDROmorphone 0.5 MG/0.5 ML SYRINGE IVP STA ×2 (19:44→22:45)
[2023-12-26] MEDS: ONDANSETRON 4 MG/2 ML VIAL IVP STA (19:45)
[2023-12-26 19:51] LABS: INR 1.1 (<1.2); Partial Thromboplastin Time 25.3 sec (22.0-30.0); Prothrombin Time 12.2 sec (10.0-12.5)
[2023-12-26 20:00] VITALS: RESP 18; TEMP 98.4
--- NOTE | 2023-12-26 20:19 | XR ---
EXAMINATION TYPE: XR KUB DATE OF EXAM: 12/26/2023 8:14 PM CLINICAL INDICATION:Female, 63 years old with history of abdominal pain; [facility] COMPARISON: None. TECHNIQUE: One radiographic view of the abdomen was obtained. FINDINGS: The bowel gas pattern is nonspecific without dilated loops of small or large bowel. There i s no evidence for organomegaly or pneumoperitoneum. Left-sided hip prosthesis. Partially visualized scoliotic curvature of the thoracic lumbar spine. No abnormal calcifications are present. Fecal mate rial and gas are demonstrated throughout the colon and rectum. IMPRESSION: Nonspecific bowel gas pattern without radiographic evidence for acute process.
[2023-12-26 21:13] LABS: Appearance,Urine Cloudy (Clear); Bacteria,Urine Occasional /hpf; Bilirubin,Urine Negative (Negative); Blood,Urine Negative (Negative); Color,Urine Yellow; Glucose,Urine (UA) Negative (Negative); Hyaline Casts,Urine 73 /lpf (0-2); Ketones,Urine 1+ (Negative); Leukocyte Esterase,Urine Large (Negative); Mucus,Urine Few /hpf; Nitrite,Urine Negative (Negative); PH, Urine 5.5 (5.0-8.0); Protein,Urine 1+ (Negative); RBC,Urine 11 /hpf (0-5); Squamous Epithelial Cell,Urine 6 /hpf (0-4); WBC,Urine 121 /hpf (0-5)
--- NOTE | 2023-12-26 23:32 | CT ---
EXAM: CT Abdomen and Pelvis With Intravenous Contrast CLINICAL HISTORY: ITS.REASON CT Reason: abdominal pain, acute, nonlocalized TECHNIQUE: Axial computed tomography images of the abdomen and pelvis with intravenous contrast. This CT exam was performed using one or more of the following dose reduction techniques: automated exposure control, adjustment of the mA and/or kV according to patient size, and/or use of iterative reconstruction technique. COMPARISON: No relevant prior studies available. FINDINGS: Lung bases: Unremarkable. No mass. No consolidation. ABDOMEN: Liver: Unremarkable. No mass. Gallbladder and bile ducts: Unremarkable. No calcified stones. No ductal dilation. Pancreas: Unremarkable. No mass. No ductal dilation. Spleen: Unremarkable. No splenomegaly. Adrenals: Unremarkable. No mass. Kidneys and ureters: Unremarkable. No solid mass. No hydronephrosis. Stomach and bowel: Laxity of the abdominal wall musculature with herniation of bowel anteriorly. No obstruction. Diverticulosis, without acute diverticulitis. No small bowel obstruction. No free intraperitoneal air. PELVIS: Appendix: Normal appendix. Bladder: Unremarkable. No mass. Reproductive: Unremarkable as visualized. ABDOMEN and PELVIS: Intraperitoneal space: Unremarkable. No free air. No significant fluid collection. Bones/joints: Degenerative changes of the spine. Scoliosis. LEFT hip arthroplasty. No acute fracture. No dislocation. Soft tissues: Unremarkable. Vasculature: Atherosclerotic changes of the aorta. No abdominal aortic aneurysm. Lymph nodes: Unremarkable. No enlarged lymph nodes. IMPRESSION: No acute findings in the abdomen or pelvis.
[2023-12-26] MEDS ORDERED: Magnesium Replacement Protocol 1 EACH MISC MISCELLANE PRN (23:58)
[2023-12-27] MEDS: MAGNESIUM SULFATE-D5W PMX 1 GM in DEXTROSE/WATER 1 100ML.BAG IVPB SCH (01:23)
[2023-12-27] MEDS: SODIUM CHLORIDE 0.9% 1,000 ML IV STA (01:24)
[2023-12-27 05:25] VITALS: BP 110/72; PULSE 69
== END 2023-12-27 04:45 | disposition home or self-care (01) ==
LOC: EC 18:32
DX: N39.0 Urinary tract infection, site not specified (principal); E83.42 Hypomagnesemia; F12.90 Cannabis use, unspecified, uncomplicated; Z88.5 Allergy status to narcotic agent; Z88.6 Allergy status to analgesic agent; Z88.8 Allergy status to other drugs, medicaments and biological substances; Z87.891 Personal history of nicotine dependence
CPT/HCPCS: 99285; 96375 ×2; 96376; 96365; 96366 ×2; 36415; 93005; 80053; 82150; 83605; 83690; 83735; 84484; 85025; 85610; 85730; 81001; 74018; 74177; 96368; J2405; J0696; J3475; J1170; Q9967; 96367

== ENCOUNTER 2024-01-01 10:21 | Emergency (ER) | payer MEDICARE, OTHER ==
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
[2024-01-01 10:47] VITALS: TEMP 98.3
[2024-01-01] MEDS: SODIUM CHLORIDE 0.9% 1,000 ML IV STA (11:03)
[2024-01-01] MEDS: KETOROLAC 15 MG/ML 1 ML VIAL IVP STA ×2 (11:04→16:34)
[2024-01-01] MEDS: ONDANSETRON 4 MG/2 ML VIAL IVP STA (11:13)
[2024-01-01 11:21] LABS: Basophils % (A) 0 %; Eosinophils # (A) 0.1 k/uL (0-0.7); Eosinophils % (A) 1 %; HGB 12.3 gm/dL (11.4-16.0); Lymphocytes # (A) 0.8 k/uL (1.0-4.8); Lymphocytes % (A) 13 %; MCH 29.8 pg (25.0-35.0); MCHC 33.2 g/dL (31.0-37.0); MCV 89.8 fL (80.0-100.0); Mean Platelet Volume 7.8; Monocytes # (A) 0.3 k/uL (0-1.0); Monocytes % (A) 5 %; Neutrophils # (A) 4.8 k/uL (1.3-7.7); Neutrophils % (A) 79 %; Platelet Count 293 k/uL (150-450); RBC 4.12 m/uL (3.80-5.40); RDW 13.9 % (11.5-15.5); WBC 6.1 k/uL (3.8-10.6)
[2024-01-01 11:39] LABS: ALT 27 U/L (4-34); AST 42 U/L (14-36); African American GFR (CKD) 86 (>60 ml/min/1.73 sqM); Albumin 4.6 g/dL (3.5-5.0); Alkaline Phosphatase 56 U/L (38-126); Amylase 51 U/L (30-110); Anion Gap 11 mmol/L; Blood Urea Nitrogen 24 mg/dL (7-17); Calcium 9.8 mg/dL (8.4-10.2); Carbon Dioxide 21 mmol/L (22-30); Chloride 104 mmol/L (98-107); Glucose 132 mg/dL (74-99); Lipase 94 U/L (23-300); Non-African American GFR(CKD) 75 (>60 ml/min/1.73 sqM); Potassium 3.8 mmol/L (3.5-5.1); Sodium 136 mmol/L (137-145); Total Bilirubin 0.5 mg/dL (0.2-1.3)
[2024-01-01] MEDS: METOCLOPRAMIDE 5 MG/ML 2 ML VIAL IVP STA (12:53)
[2024-01-01] MEDS: HYDROmorphone 0.5 MG/0.5 ML SYRINGE IVP STA (12:53)
[2024-01-01 13:58] LABS: Appearance,Urine Clear (Clear); Bilirubin,Urine Negative (Negative); Blood,Urine Small (Negative); Color,Urine Colorless; Glucose,Urine (UA) Trace (Negative); Ketones,Urine Trace (Negative); Leukocyte Esterase,Urine Large (Negative); Mucus,Urine Rare /hpf; Nitrite,Urine Negative (Negative); PH, Urine 7.5 (5.0-8.0); Protein,Urine Negative (Negative); RBC,Urine 1 /hpf (0-5); Specific Gravity,Urine 1.011 (1.001-1.035); Squamous Epithelial Cell,Urine 1 /hpf (0-4); Urobilinogen,Urine <2.0 mg/dL (<2.0); WBC,Urine 12 /hpf (0-5)
[2024-01-01 14:28] VITALS: RESP 16
[2024-01-01 15:22] VITALS: PULSE 69
--- NOTE | 2024-01-01 15:51 | FL ---
EXAMINATION TYPE: FL UGI w esophagus DATE OF EXAM: 01/01/2024 COMPARISON: 12/26/2023 HISTORY: Hiatal hernia repair nausea and vomiting TECHNIQUE: A single contrast Limited UGI study is performed. FINDINGS: Fluoroscopy time: 51 seconds. DAP: 992.72 Images: 34. Contrast passes through the esophagus without hesitancy. Gastroesophageal junction opens to a normal caliber. No persistent stricture is evident. No extravasation is identified. IMPRESSION: 1. No persistent stenosis or extravasation of contrast at the gastroesophageal junction
[2024-01-01 16:14] VITALS: BP 117/75
== END 2024-01-01 16:42 | disposition home or self-care (01) ==
LOC: EC 10:21
DX: G89.18 Other acute postprocedural pain (principal); R10.9 Unspecified abdominal pain; R11.2 Nausea with vomiting, unspecified; F12.90 Cannabis use, unspecified, uncomplicated; Z88.5 Allergy status to narcotic agent; Z88.8 Allergy status to other drugs, medicaments and biological substances; Z87.891 Personal history of nicotine dependence
CPT/HCPCS: 36415; 93005; 80053; 82150; 83605; 83690; 85025; 81001; 87086; 74240; 99285; 96374; 96375 ×3; 96376; 96361; J2765; J2405; J1885; J1170; Q9967

== ENCOUNTER → 2024-01-10 | Outpatient (CLI) | payer MEDICARE, OTHER ==
--- NOTE | 2024-01-10 09:33 | US ---
EXAMINATION TYPE: US gallbladder DATE OF EXAM: 01/10/2024 COMPARISON: 10/11/20, CT: 12/26/23 CLINICAL INDICATION: Female, 63 years old with history of K811 CHRONIC CHOLECYSTITIS; chronic cholecy stitis TECHNIQUE: Multiple sonographic images of the right upper quadrant are obtained. FINDINGS: EXAM MEASUREMENTS: Liver Length: 14.8 cm Gallbladder Wall: 0.1 cm CBD: 0.4 cm Right Kidney: 10.2 x 4.5 x 4.5 cm Pancreas: Tail obscured by bowel gas. Parts seen appear wnl Liver: Heterogeneous , no suspicious masses, dilated ducts or cysts. Gallbladder: wnl Evidence for sonographic Montano's sign: No CBD: wnl Right Kidney: Cystic area seen mid pole measuring 2.7 x 2.2 x 1.6cm IMPRESSION: 1. No evidence for acute process. 2. Simple appearing right renal cyst. 3. Hepatocellular disease correlate with serum markers.
== END | disposition home or self-care (01) ==
LOC: RADUSWWP 08:16
PROVIDERS: ATTEND Surgery Plastic and Reconstructive Surgery
DX: N28.1 Cyst of kidney, acquired (principal); K81.1 Chronic cholecystitis
CPT/HCPCS: 76705

== ENCOUNTER → 2024-01-21 | Outpatient (CLI) | payer MEDICARE, OTHER ==
--- NOTE | 2024-01-21 10:53 | NM ---
EXAMINATION TYPE: NM hepatobiliary w EF DATE OF EXAM: 01/21/2024 9:25 AM COMPARISON: 01/10/2024 CLINICAL INDICATION:Female, 63 years old with history of K81.1 CHRONIC CHOLECYSTITIS; TECHNIQUE: The patient was given 4.6 mCi of Technetium 99m-Mebrofenin as a radiotracer and multiple scintigraphic images were obtained of the abdomen. Gallbladder function was also assessed after the a dministration ensure drink and additional scintigraphic images were obtained of the abdomen. A region of interest was drawn over the gallbladder and a timing activity curve was generated. The gallbladde r ejection fraction was calculated. FINDINGS: Normal uptake of radiotracer was identified within the liver with excretion into the hepatic and comm on biliary ducts within 8 minutes. There was normal progressive washout of the liver over the course of the study. Radiotracer uptake within the gallbladder at 12 minutes as well as small bowel activity was identified at 8 minutes. Maximum calculated gallbladder ejection fraction is: 78% at 30 minutes (Normal gallbladder ejection fraction is > 35%) IMPRESSION: 1. Normal hepatobiliary scan. 2. Normal ejection fraction.
== END | disposition home or self-care (01) ==
LOC: RADNMMAIN 07:03
PROVIDERS: ATTEND Surgery Plastic and Reconstructive Surgery
DX: K81.1 Chronic cholecystitis (principal)
CPT/HCPCS: 78226; A9537

== ENCOUNTER 2024-01-22 16:11 | Emergency (ER) | payer MEDICARE, OTHER ==
[2024-01-22 16:36] VITALS: RESP 18; TEMP 98.1
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
[2024-01-22] MEDS: KETOROLAC 15 MG/ML 1 ML VIAL IM STA (16:57)
--- NOTE | 2024-01-22 18:03 | XR ---
EXAMINATION TYPE: XR foot complete LT, XR ankle complete LT DATE OF EXAM: 01/22/2024 5:20 PM CLINICAL INDICATION:Female, 63 years old with history of injury; COMPARISON: None TECHNIQUE: XR foot complete LT, XR ankle complete LT examined in the AP, oblique, and lateral project ions. FINDINGS/IMPRESSION: 1. Acute fracture through the fourth and fifth metatarsal head neck with lateral angulation and asso ciated soft tissue swelling. No intra-articular extension. 2. Hallux valgus. 3. Calcaneal plantar spurring. 4. Multi focal degeneration with osteophyte formation joint space narrowing. 5. Remote injury to the deltoid ligament calcifications.
[2024-01-22 19:10] VITALS: BP 126/84; PULSE 86
== END 2024-01-22 19:08 | disposition home or self-care (01) ==
LOC: EC 16:11
DX: S92.342A Displaced fracture of fourth metatarsal bone, left foot, initial encounter for closed fracture (principal); S92.352A Displaced fracture of fifth metatarsal bone, left foot, initial encounter for closed fracture; F12.90 Cannabis use, unspecified, uncomplicated; Z88.5 Allergy status to narcotic agent; Z88.8 Allergy status to other drugs, medicaments and biological substances; Z87.891 Personal history of nicotine dependence; W20.8XXA Other cause of strike by thrown, projected or falling object, initial encounter
CPT/HCPCS: 99283 ×2; 96372 ×2; 73610; 73630; J1885

== ENCOUNTER → 2024-10-02 | Outpatient (CLI) | payer MEDICARE, OTHER ==
[2024-10-02 10:07] VITALS: BP 160/90; PULSE 76; RESP 16; TEMP 98.1; BMI 32.2
--- NOTE | 2024-10-02 18:10 | P.BASOAP ---
Subjective Progress Note Date: 10/02/24 CHIEF COMPLAINT: History of morbid obesity HISTORY OF PRESENT ILLNESS: The patient is a 64-year-old female status post cholecystectomy 09/21/2024. Patient reports pre-existing right upper quadrant epigastric abdominal pain is now completely resolved. She has completely changed how she eats and has consistently lost weight since started the bariatric center. No further gastroesophageal reflux disease. Patient's main concern today includes redundant skin of the arms including of the abdomen. [place] body weight for 5 foot 1 inches is 163 pounds. Highest weight 244 pounds, body mass index 46.3. Last weight 171 pounds. Present weight 170 pounds. Weight loss of 1 pound in 2 weeks. Lifetime weight loss 74 pounds. Percent excess weight loss lifetime of 65%. Patient has 40 pounds overweight. Current body mass index 32.2. ROS: No reports of nausea and vomiting. No fevers or chills. No new chest pain. PHYSICAL EXAM: VITAL SIGNS: Reviewed CONSTITUTIONAL: Well developed and in no acute distress. EYES: Conjuctivae without sclera icterus. Extraocular movements grossly intact. Wears glasses HEAD, EARS, NOSE, THROAT: Moist buccal mucosa. Head is atraumatic, normocephalic. Hears conversational speech. No nasal drainage. RESPIRATORY: Non-labored respirations and equal bilateral excursions. CARDIOVASCULAR: Palpable 2+ radial pulses. ABDOMEN: Incision intact. Mild erythema less than 5 mm border left abdomen. Moderate laxity abdominal wall hernia with loss of domain. MUSCULOSKELETAL: No gross deformity of the lower extremities noted. No clubbing. No cyanosis. SKIN: Good skin turgor. Well perfused. Moderate redundant skin tissue of bilateral upper arms. NEUROLOGIC: Cranial nerves II through XII grossly intact. No focal or lateralizing signs. PSYCH: Appropriate affect. Alert and oriented to person, place and time. PATHOLOGY: Mild chronic cholecystitis ASSESSMENT: 1. History of morbid obesity 2. Status post cholecystectomy for cholecystitis 3. Gastroesophageal reflux disease 4. Adiposis pediculosis 5. Abdominal wall hernia 6. Excess tissue bilateral upper arms PLAN: 1. She has moderate weight loss on her own of over 70+ pounds. However, patient does have abdominal wall hernia from her prior surgeries with loss of domain and may benefit from repair. 2. Recommend additional weight loss 30 pounds for ideal abdominal wall repair. 3. Local wound care includes antibacterial soap and hydrogen peroxide to minimize erythema along incisions 4. Follow-up as needed Objective - Vital Signs Vital signs: Vital Signs Temp 98.1 F 10/02/24 09:50 Pulse 76 10/02/24 09:50 Resp 16 10/02/24 09:50 BP 160/90 10/02/24 09:50 Pulse Ox FiO2 Intake & Output 10/01/24 10/02/24 10/02/24 18:59 06:59 18:59 Weight 77.383 kg Assessment/Plan Plan: Date: 10/02/24 Initial Weight: 92.533 kg Initial BMI: 38.5 Current Weight: 77.383 kg Current BMI: 32.2 Type of Surgery: Total Volume in Band: Previous Volume: Volume Removed: Volume Added: Band Size:
== END ==
LOC: BARWHC3 08:47
PROVIDERS: ATTEND Surgery Plastic and Reconstructive Surgery
DX: K21.9 Gastro-esophageal reflux disease without esophagitis (principal); B85.2 Pediculosis, unspecified; K46.9 Unspecified abdominal hernia without obstruction or gangrene; Z90.49 Acquired absence of other specified parts of digestive tract; Z86.39 Personal history of other endocrine, nutritional and metabolic disease; Z88.5 Allergy status to narcotic agent; Z88.1 Allergy status to other antibiotic agents
CPT/HCPCS: 99211